=== PATIENT | female | born 1960 | race American Indian/Alaskan Native ===

== ENCOUNTER 2017-11-12 09:09 | Emergency (ER) | payer MEDICAID ==
[~2017-11-12] VITALS: Ht 157.5 cm; Wt 40.8 kg
[~2017-11-12 09:09] MED LIST: ALBIPROI INH; ALBU90OI INH; AZIT250 PO; BUPR150ER; CALCAVITD PO; CEPH500 PO; CODACE30 PO; CODGUAEL PO; CYCL10 PO; Duoneb 2.5-0.5 M3 ML INH; HYDACE5 PO; HYDACE7.5 PO; IBUP200; LEVFLO500 PO; MULVITMIND PO; PRED20 PO; Prednisone20 MG PO; Prednisone50 MG PO; RXHYDACE PO; STIOLTO RESPIMAT4 GM; Zithromax250 MG PO
[2017-11-12 10:00] LABS: BASOPHILS ABSOLUTE AUTO 0.04 K/mm3 (0.00-0.23); BASOPHILS PERCENT AUTO 1 % (0-2); EOSINOPHILS ABSOLUTE AUTO 0.38 K/mm3 (0.00-0.68); EOSINOPHILS PERCENT AUTO 6 % (0-6); Hematocrit 44.1 % (33.0-51.0); Hemoglobin 14.6 g/dL (11.5-16.0); IMMATURE GRAN ABSOLUTE AUTO 0.01 K/mm3 (0.00-0.10); IMMATURE GRAN PERCENT AUTO 0 % (0-1); LYMPHOCYTES ABSOLUTE AUTO 1.88 K/mm3 (0.84-5.20); LYMPHOCYTES PERCENT AUTO 28 % (21-46); MONOCYTES PERCENT AUTO 10 % (4-13); Mean Corpuscular HGB 31.3 pg (26.0-34.0); Mean Corpuscular HGB Conc 33.1 g/dL (31.5-36.5); Mean Corpuscular Volume 95 fL (80-100); Mean Platelet Volume 11.4 fL (9.1-12.4); NEUTROPHILS ABSOLUTE AUTO 3.75 K/mm3 (1.96-9.15); NEUTROPHILS PERCENT AUTO 56 % (41-73); Platelet Count 232 K/mm3 (150-400); RDW Coefficient Variation 12.2 % (11.7-14.2); RDW Standard Deviation 42.3 fL (35.1-46.3); Red Blood Cell Count 4.66 M/mm3 (3.80-5.20); White Blood Cell Count 6.76 K/mm3 (4.00-11.30)
[2017-11-12 10:14] LABS: Alanine Aminotransfer (ALT/SGP 36 U/L (12-78); Albumin, Blood 3.9 g/dL (3.4-5.0); Albumin/Globulin Ratio 1.1 (0.8-1.8); Alk Phos 54 U/L (50-136); Anion Gap 6 mmol/L (6-16); Aspartate Aminotrans (AST/SGOT 31 U/L (12-37); Bilirubin, Total 0.4 mg/dL (0.1-1.0); Blood Urea Nitrogen 14 mg/dL (8-24); Bun/Creatinine Ratio 16.8 (12.0-20.0); CO2, Blood 31 mmol/L (21-32); Calcium, Blood 8.8 mg/dL (8.5-10.1); Chloride, Blood 104 mmol/L (98-108); Creatinine, Blood 0.83 mg/dL (0.40-1.00); Globulin, Blood 3.6 g/dL (2.2-4.0); Glomerular Filtration Rate >60 (60-); Glucose, Blood 123 mg/dL (70-99); Sodium, Blood 141 mmol/L (136-145); Total Protein, Blood 7.5 g/dL (6.4-8.2); Troponin I <0.015 ng/mL (0.000-0.040)
[2017-11-12] MEDS ORDERED: Prednisone20 MG PO (11:16)
[2017-11-12] MEDS ORDERED: Zithromax250 MG PO (11:16)
[2017-11-12] MEDS ORDERED: STIOLTO RESPIMAT4 GM INH (11:16)
== END 2017-11-12 11:33 | disposition home or self-care (01) ==
LOC: ER 09:09
PROVIDERS: Emergency Medicine
DX: J44.1 Chronic obstructive pulmonary disease with (acute) exacerbation (principal); F17.200 Nicotine dependence, unspecified, uncomplicated
CPT/HCPCS: 36415; 71046; 80053; 84484; 85025; 93005; 93010; 94640; 96374; 99284-25; J2930

== ENCOUNTER 2018-09-01 00:04 | Inpatient (IN) | payer OTHER ==
[~2018-09-01] VITALS: Ht 157.5 cm; Wt 33.8 kg
[~2018-09-01 00:04] MED LIST changes: +STIOLTO RESPIMAT4 GM INH
[2018-09-01 01:35] LABS: Alanine Aminotransfer (ALT/SGP 32 U/L (12-78); Albumin, Blood 3.2 g/dL (3.4-5.0); Albumin/Globulin Ratio 0.8 (0.8-1.8); Alk Phos 64 U/L (50-136); Anion Gap 4 mmol/L (6-16); Aspartate Aminotrans (AST/SGOT 21 U/L (12-37); Bilirubin, Total 0.2 mg/dL (0.1-1.0); Blood Urea Nitrogen 18 mg/dL (8-24); Bun/Creatinine Ratio 24.6 (12.0-20.0); CO2, Blood 39 mmol/L (21-32); Calcium, Blood 8.8 mg/dL (8.5-10.1); Chloride, Blood 100 mmol/L (98-108); Creatinine, Blood 0.73 mg/dL (0.40-1.00); Globulin, Blood 3.8 g/dL (2.2-4.0); Glomerular Filtration Rate >60 (60-); Glucose, Blood 141 mg/dL (70-99); Potassium, Blood 4.2 mmol/L (3.5-5.5); Sodium, Blood 143 mmol/L (136-145); Troponin I <0.015 ng/mL (0.000-0.040)
[2018-09-01 01:37] LABS: BASOPHILS ABSOLUTE AUTO 0.03 K/mm3 (0.00-0.23); BASOPHILS PERCENT AUTO 0 % (0-2); EOSINOPHILS ABSOLUTE AUTO 0.17 K/mm3 (0.00-0.68); EOSINOPHILS PERCENT AUTO 2 % (0-6); Hematocrit 43.4 % (33.0-51.0); Hemoglobin 13.2 g/dL (11.5-16.0); IMMATURE GRAN ABSOLUTE AUTO 0.04 K/mm3 (0.00-0.10); IMMATURE GRAN PERCENT AUTO 0 % (0-1); LYMPHOCYTES PERCENT AUTO 16 % (21-46); MONOCYTES PERCENT AUTO 7 % (4-13); Mean Corpuscular HGB 30.2 pg (26.0-34.0); Mean Corpuscular HGB Conc 30.4 g/dL (31.5-36.5); Mean Corpuscular Volume 99 fL (80-100); Mean Platelet Volume 10.4 fL (9.1-12.4); NEUTROPHILS ABSOLUTE AUTO 8.46 K/mm3 (1.96-9.15); NEUTROPHILS PERCENT AUTO 75 % (41-73); Platelet Count 279 K/mm3 (150-400); RDW Standard Deviation 50.8 fL (35.1-46.3); Red Blood Cell Count 4.37 M/mm3 (3.80-5.20)
--- NOTE | 2018-09-01 05:57 | NUR ---
0345 58 Y/O SLENDER FEMALE ADMITTED TO ROOM 310 VIA STRETCHER WITH DAUGHTER AT SIDE (DAUGHTER TOOK ALL PERSONAL BELONGINGS HOME WITH HER). ADMISSION ASSESSMENT COMPLETED. PT ATE BOWL OF SOUP, BEEF SANDWICH AND YOGURT UPON PRESENTATION TO ROOM. 0550 PT HAS SOLUMEDROL 60MG IVP ORDERED AT 0700 (PT RECEIVED 125MG IVP AT 0300). THIS NURSE CALLED PHARMACY AND SPOKE WITH CELESTINO, PHARMICIST WHOM SAID IT WAS OK GIVE MED ORDERED.
--- NOTE | 2018-09-01 08:00 | NUR ---
PT. SLEEPING, VERY LETHARGIC OPENS EYES AND THEN CLOSES THEM WITHOUT ANSWERING. OXYGEN AT 3L/NC.
[2018-09-01 10:57] LABS: PCO2 Arterial 70.3 mmHg (35-45); PO2 Arterial 92.2 mmHg (80-100); pH Blood Arterial 7.37 (7.35-7.45)
--- NOTE | 2018-09-01 19:00 | NUR ---
PT. LYING QUIETLY AT THIS TIME. HAS A TENDEENCY TO PANIC WHEN SHE GETS SOB. SAT WITH PT. UNTIL SHE CALMED DOWN AND RT ARRIVED. NO NOTEABLE CHANGES THIS SHIFT.
--- NOTE | 2018-09-02 04:25 | NUR ---
58 Y/O FEMALE RESTED COMFORTABLY ALL EVENING WITH FAMILY AT SIDE TILL 2300. PTS DELINING TO WEAR C/PAP IN ROOM--WEARING O2 AT 2L/M PER NASAL CANNULA. PT HAPPY AND COOPERATIVE AND VOICED SHE FEELING SLIGHTLY BETTER. PT LUNGS SOUNDS ARE DIMINISHED THROUGHOUT WITH ZERO COUGH NOTED. PTS BED IN LOW POSITION, CALL LIGHT AT SIDE.
[2018-09-02 07:26] LABS: BASOPHILS ABSOLUTE AUTO 0.01 K/mm3 (0.00-0.23); BASOPHILS PERCENT AUTO 0 % (0-2); EOSINOPHILS PERCENT AUTO 0 % (0-6); Hemoglobin 13.5 g/dL (11.5-16.0); IMMATURE GRAN ABSOLUTE AUTO 0.03 K/mm3 (0.00-0.10); IMMATURE GRAN PERCENT AUTO 0 % (0-1); LYMPHOCYTES ABSOLUTE AUTO 0.69 K/mm3 (0.84-5.20); LYMPHOCYTES PERCENT AUTO 8 % (21-46); MONOCYTES ABSOLUTE AUTO 0.13 K/mm3 (0.16-1.47); MONOCYTES PERCENT AUTO 2 % (4-13); Mean Corpuscular HGB 30.9 pg (26.0-34.0); Mean Platelet Volume 11.3 fL (9.1-12.4); NEUTROPHILS ABSOLUTE AUTO 8.04 K/mm3 (1.96-9.15); NEUTROPHILS PERCENT AUTO 90 % (41-73); Platelet Count 280 K/mm3 (150-400); RDW Coefficient Variation 13.5 % (11.7-14.2); RDW Standard Deviation 51.8 fL (35.1-46.3); Red Blood Cell Count 4.37 M/mm3 (3.80-5.20)
[2018-09-02 08:00] LABS: Anion Gap 3 mmol/L (6-16); Blood Urea Nitrogen 22 mg/dL (8-24); CO2, Blood 35 mmol/L (21-32); Calcium, Blood 8.5 mg/dL (8.5-10.1); Chloride, Blood 101 mmol/L (98-108); Creatinine, Blood 0.63 mg/dL (0.40-1.00); Glomerular Filtration Rate >60 (60-); Glucose, Blood 133 mg/dL (70-99); Potassium, Blood 4.8 mmol/L (3.5-5.5); Sodium, Blood 139 mmol/L (136-145)
[2018-09-02 08:09] LABS: Mean Corpuscular Volume 103 fL (80-100)
--- NOTE | 2018-09-02 18:34 | NUR ---
ALERT, ORIENTED BUT FORGETFUL. AMBULATORY WITH STEADY GAIT IN ROOM. SOMETIMES GETS SOB WITH MOVEMENT. ON OXYGEN. WILL CONTINUE TO MONITOR.
--- NOTE | 2018-09-03 07:07 | NUR ---
a+o to self and place, call light in reach, walking rounds completed with returning day shift, saline locked, 2L via nc, did not enjoy being woken up.
--- NOTE | 2018-09-03 11:25 | NUR ---
Spiritual care visit conducted. Patient was lying on her side and resting when I entered the room. Patient immediately stated that she was tired and would not tolerate a long visit. As I asked patient a few questions, I observed that patient was not open with sharing information about her physical, spiritual or emotional status. I, therefore, made my visit short. I asked patient if I could say a prayer for her and she nodded affirmingly and so I provided prayer for the patient. Patient responded well to the prayer nd thanked me for praying for her. I will continue to remain available to patient and family.
--- NOTE | 2018-09-03 13:35 | NUR ---
LEFT MESSAGE ON VOICE MAIL THAT PATIENT GETTING HEADACHE YESTERDAY AND TODAY. GIVEN TYLENOL EARLIER AND HELPED. HEADACHE AGAIN. PATIENT NORMALLY TAKES 400 MG IBUPROFEN AT HOME. AWAITING ANY ORDERS.
--- NOTE | 2018-09-03 17:30 | NUR ---
LEFT MESSAGE ON VOICE MAIL PATIENT AND RELATIVES WONDERING ABOUT; PULMONOLOGY CONSULT, NEED FOR IV FLUIDS, CHANGE STEROIDS. AWAITING ANY ORDERS
--- NOTE | 2018-09-03 18:21 | NUR ---
PATIENT ALERT BUT FORGETFUL.CHANGED OXYGEN TO HUMIDIFIED. ADVISED RELATIVES AND PATIENT LOOKS LIKE PULMONOLGY CONSULT IS OUTPATIENT AND USUALLY WHEN PATIENTS ARE DRINKING APPROPRIATE AMOUNTS OF FLUIDS IV FLUIDS ARE NOT ORDERED. COOPERATIVE. AWARE NEEDS MEASURE URINE. WCTM
--- NOTE | 2018-09-04 07:07 | NUR ---
alert and orintated to self and location short term memory, thought events that occured previous day just occured, call light in reach, walking rounds completed, saline locked, 2L via NE
--- NOTE | 2018-09-04 19:06 | NUR ---
ALERT. ORIENTED. FORGETFUL. AMBULATORY W/STEADY GAIT IN ROOM. DOES GET SOB SOMETIMES W/EXERTION. IV PATENT. CONTINUOUS SAT ON. NO ACUTE CHANGES. REPORT TO NIGHT RN
[2018-09-05 05:16] LABS: BASOPHILS ABSOLUTE AUTO 0.02 K/mm3 (0.00-0.23); BASOPHILS PERCENT AUTO 0 % (0-2); EOSINOPHILS PERCENT AUTO 0 % (0-6); Hemoglobin 12.1 g/dL (11.5-16.0); IMMATURE GRAN ABSOLUTE AUTO 0.13 K/mm3 (0.00-0.10); IMMATURE GRAN PERCENT AUTO 2 % (0-1); LYMPHOCYTES PERCENT AUTO 6 % (21-46); MONOCYTES ABSOLUTE AUTO 0.35 K/mm3 (0.16-1.47); MONOCYTES PERCENT AUTO 4 % (4-13); Mean Corpuscular HGB 30.2 pg (26.0-34.0); Mean Corpuscular HGB Conc 29.5 g/dL (31.5-36.5); Mean Corpuscular Volume 102 fL (80-100); Mean Platelet Volume 11.6 fL (9.1-12.4); NEUTROPHILS ABSOLUTE AUTO 7.95 K/mm3 (1.96-9.15); NEUTROPHILS PERCENT AUTO 89 % (41-73); Platelet Count 251 K/mm3 (150-400); RDW Standard Deviation 52.9 fL (35.1-46.3); Red Blood Cell Count 4.01 M/mm3 (3.80-5.20); White Blood Cell Count 8.95 K/mm3 (4.00-11.30)
[2018-09-05 05:37] LABS: Anion Gap 1 mmol/L (6-16); Blood Urea Nitrogen 26 mg/dL (8-24); Bun/Creatinine Ratio 47.4 (12.0-20.0); CO2, Blood 39 mmol/L (21-32); Calcium, Blood 8.3 mg/dL (8.5-10.1); Chloride, Blood 102 mmol/L (98-108); Creatinine, Blood 0.55 mg/dL (0.40-1.00); Glomerular Filtration Rate >60 (60-); Glucose, Blood 126 mg/dL (70-99); Potassium, Blood 4.6 mmol/L (3.5-5.5); Sodium, Blood 142 mmol/L (136-145)
--- NOTE | 2018-09-05 07:18 | NUR ---
resting comfortably, still has headache that is reduced by medication, call light in reach, 2L via nc, saline locked, forgetful alert to self, family and location, walking rounds completed with day staff
--- NOTE | 2018-09-05 14:12 | NUR ---
Spiritual care visit conducted. Patient was resting when I entered patient's room but easily awoke to the sound of her name. I asked patient how she is feeling and patient stated, "I am tired, very tired." Patient continues to be quite guarded with me. Patient still allows me to pray for her but that is the extent of engagement she will allow at this time. I provided prayer and will continue to remain available.
--- NOTE | 2018-09-05 15:58 | NUR ---
PT IS ALERT AND ORIENTED AND COOPERATIVE WITH CARE. SHE HAS A PRODUCTIVE COUGH PRODUCING YELLOW, THICK SPUTUM. A SPUTUM SAMPLE WAS TAKEN AND CULTURED. DR. PARSON STARTED HER ON IV ANTIBIOTICS TODAY. SHE COMPLAINED OF CONSTIPATION THIS MORNING BUT REFUSED THE MORNING STOOL SOFTENERS. SHE IS INDEPENDENT TO THE RESTROOM. FAMILY WAS AT THE BEDSIDE FOR MOST OF THE DAY. WILL CONTINUE TO MONITOR.
--- NOTE | 2018-09-05 23:50 | NUR ---
09/05/18 2330 PT AWAKE AND JUST HAD RESP TX. TIRED BUT UNABLE TO SLEEP. STATES SHE JUST DOESN'T FEEL GOOD. XANAX GIVEN PER JUL. CONT. PULSE OX. ON AND SATS= 95% ON 3 LPM OF OXYGEN.
--- NOTE | 2018-09-06 08:00 | NUR ---
PT SLEEPING THIS MORNING AFTER A RESTLESS NIGHT. WILL LET HER SLEEP A LITTLE LONGER. WILL CONTINUE TO MONITOR.
--- NOTE | 2018-09-06 09:40 | NUR ---
PT AWAKE, ALERT AND ORIENTED X4, EATING A LATE BREAKFAST, AM MEDS TAKEN WITHOUT DIFFICULTY.
--- NOTE | 2018-09-06 19:06 | NUR ---
NO ACUTE CHANGES NOTED THIS SHIFT, WILL CONTINUE TO MONITOR AND REPORT TO ONCOMING RN
[2018-09-07] MEDS ORDERED: ALBU2.5V5 NEB (12:09)
[2018-09-07] MEDS ORDERED: Acetaminophen650 M1 PO (12:10)
[2018-09-07] MEDS ORDERED: ALBU3IS INH (12:10)
[2018-09-07] MEDS ORDERED: Augmentin 875-1 EACH PO (12:11)
[2018-09-07] MEDS ORDERED: DOCU100 PO (12:12)
[2018-09-07] MEDS ORDERED: PRED20 (12:14)
[2018-09-07] MEDS ORDERED: DULERA 100 MCG/13 GM INH (12:15)
[2018-09-07] MEDS ORDERED: PANT40 PO (12:15)
[2018-09-07] MEDS ORDERED: HEMORRHOIDAL OI57 GM PR (12:17)
[2018-09-07] MEDS ORDERED: AZIT500 PO (12:17)
[2018-09-07] MEDS ORDERED: Florastor250 MG PO (12:18)
--- NOTE | 2018-09-07 16:13 | NUR ---
DISCHARGE NOTE PT DISCHARGED TO HOME. PT LEFT ROOM VIA WHEELCHAIR WITH AUTO CLAIM REPRESENTATIVE ESCORT AT 1605 WITH 2L O2. PT EDUCATED ON NEW MEDICATIONS AND FOLLOW UP WITH PCP AND PULMONOLOGY. IV DC'D AND BELONGINGS RETURNED. ALL QUESTIONS ANSWERED
== END 2018-09-07 16:05 | disposition home or self-care (01) | DRG 189 ==
LOC: ER 00:04 → MEDS 02:40 → ENPENDDIS 09-07 09:07 → MEDS 09-07 16:05
PROVIDERS: Emergency Medicine; Internal Medicine; ADMIT Hospitalist
PROC: 5A09357 Assistance with Respiratory Ventilation, Less than 24 Consecutive Hours, Continuous Positive Airway Pressure (ICD-10-PCS; principal; 2018-09-01)
DX: J96.21 Acute and chronic respiratory failure with hypoxia (principal); G92 Toxic encephalopathy; J44.1 Chronic obstructive pulmonary disease with (acute) exacerbation; E87.3 Alkalosis; R63.6 Underweight; F43.21 Adjustment disorder with depressed mood; B96.3 Hemophilus influenzae [H. influenzae] as the cause of diseases classified elsewhere; Z87.891 Personal history of nicotine dependence; R73.9 Hyperglycemia, unspecified; J96.22 Acute and chronic respiratory failure with hypercapnia; K59.00 Constipation, unspecified; K64.9 Unspecified hemorrhoids
CPT/HCPCS: 36415; 36600; 71046; 80048; 80053; 82803; 83880; 84484; 85025; 87070; 87077; 87185; 87205; 93005; 93010; 94640; 94660; 94664; 94667; 94668; 94761; 94762; 96374; 98960; 99285-25; J0456; J0696; J1650; J2930; J7050

== ENCOUNTER → 2018-09-12 | Outpatient (CLI) | payer OTHER ==
[~2018-09-12] MED LIST changes: +ALBU2.5V5 NEB; +ALBU3IS INH; +AZIT500 PO; +Acetaminophen650 M1 PO; +Augmentin 875-1 EACH PO; +DOCU100 PO; +DULERA 100 MCG/13 GM INH; +Florastor250 MG PO; +HEMORRHOIDAL OI57 GM PR; +PANT40 PO; +PRED20
== END | disposition home or self-care (01) ==
LOC: LAB SHORT 18:09 → LAB 18:09
DX: L03.115 Cellulitis of right lower limb (principal)
CPT/HCPCS: 87070; 87205

== ENCOUNTER 2022-09-22 08:24 | Inpatient (IN) | payer OTHER ==
[~2022-09-22] VITALS: Ht 149.9 cm; Wt 33.1 kg
[2022-09-22] VITALS (30 sets, daily range): BP systolic 79–147; BP diastolic 48–128
[2022-09-22 08:47] LABS: Base Excess Venous 28.5 mmol/L; Bicarbonate Venous 48.2 mmol/L (24.0-30.0); PCO2 Venous 84.9 mmHg (38-42); pH Blood Venous 7.41 (7.34-7.37)
[2022-09-22 09:03] LABS: BASOPHILS ABSOLUTE AUTO 0.02 K/mm3 (0.00-0.23); BASOPHILS PERCENT AUTO 0 % (0-2); EOSINOPHILS ABSOLUTE AUTO 0.07 K/mm3 (0.00-0.68); EOSINOPHILS PERCENT AUTO 1 % (0-6); Hematocrit 42.4 % (33.0-51.0); Hemoglobin 12.1 g/dL (11.5-16.0); IMMATURE GRAN ABSOLUTE AUTO 0.02 K/mm3 (0.00-0.10); IMMATURE GRAN PERCENT AUTO 0 % (0-1); LYMPHOCYTES ABSOLUTE AUTO 1.99 K/mm3 (0.84-5.20); LYMPHOCYTES PERCENT AUTO 34 % (21-46); MONOCYTES ABSOLUTE AUTO 0.53 K/mm3 (0.16-1.47); MONOCYTES PERCENT AUTO 9 % (4-13); Mean Corpuscular HGB 31.2 pg (26.0-34.0); Mean Corpuscular HGB Conc 28.5 g/dL (31.5-36.5); Mean Corpuscular Volume 109 fL (80-100); Mean Platelet Volume 11.7 fL (9.1-12.4); NEUTROPHILS ABSOLUTE AUTO 3.28 K/mm3 (1.96-9.15); NEUTROPHILS PERCENT AUTO 56 % (41-73); Platelet Count 178 K/mm3 (150-400); RDW Coefficient Variation 13.2 % (11.7-14.2); RDW Standard Deviation 53.5 fL (35.1-46.3); Red Blood Cell Count 3.88 M/mm3 (3.80-5.20); White Blood Cell Count 5.91 K/mm3 (4.00-11.30)
[2022-09-22 09:19] LABS: Alanine Aminotransfer (ALT/SGP 29 U/L (12-78); Albumin, Blood 3.2 g/dL (3.4-5.0); Albumin/Globulin Ratio 0.8 (0.8-1.8); Alk Phos 50 U/L (50-136); Anion Gap Unable to Calculate mmol/L (6-16); Aspartate Aminotrans (AST/SGOT 27 U/L (12-37); Bilirubin, Total 0.3 mg/dL (0.1-1.0); Blood Urea Nitrogen 13 mg/dL (8-24); Bun/Creatinine Ratio 27.4 (12.0-20.0); Calcium, Blood 8.3 mg/dL (8.5-10.1); Chloride, Blood 93 mmol/L (98-108); Creatinine, Blood 0.48 mg/dL (0.40-1.00); Globulin, Blood 3.9 g/dL (2.2-4.0); Glomerular Filtration Rate 107 (60-); Glucose, Blood 117 mg/dL (70-99); Sodium, Blood 142 mmol/L (136-145); Total Protein, Blood 7.1 g/dL (6.4-8.2)
[2022-09-22 09:19] LABS: PCO2 Arterial > 104 mmHg (35-45); pH Blood Arterial 7.27 (7.35-7.45)
[2022-09-22 09:21] LABS: PO2 Arterial 25.6 mmHg (80-100)
[2022-09-22 09:21] LABS: CO2, Blood >45 mmol/L (21-32)
[2022-09-22 11:04] LABS: Influenza A, PCR NEGATIVE (NEGATIVE); Influenza B, PCR NEGATIVE (NEGATIVE); Resp Syncytial Virus, PCR NEGATIVE (NEGATIVE); SARS-Cov-2 (COVID-19) PCR, MMC NEGATIVE (NEGATIVE)
[2022-09-22 14:24] LABS: Source, Urine Foley catheter
[2022-09-22 14:36] LABS: Appearance, Urine Hazy (Clear); Bilirubin, Urine Neg (Neg); Blood, Urine Neg (Neg); Color, Urine Yellow (P-Yellow); Glucose Qualitative, Urine Neg (Neg); Ketones, Urine Neg (Neg); Leukocyte Esterase, Urine Neg (Neg); Nitrite, Urine Neg (Neg); Protein, Urine Neg (Neg); Urobilinogen, Urine NORM (Normal)
--- NOTE | 2022-09-22 14:39 | NUR ---
PT ARRIVED TO ROOM AT 1223. INITIALLY THE PATIENT SEEMED TO BE CALM AND COOPERATED WITH CARE. WITHIN MINUTES OF THE PATIENT GETTING SETTLED IN BED SHE BEGAN TO BECOME RESTLESS AND MORE AGITATED. THE PATIENT'S PRECEDEX WAS AT 0.7 WHEN SHE ARRIVED. THE PATIENT THEN STARTED TO TAKE HER BIPAP OFF, GOT ON THE EDGE OF THE BED AND STARTED ASKING FOR HER MOM AND BROTHER. THE PATIENT BEGAN TO TAKE HER BP CUFF OFF AND BROKE THE SP02 MONITORING OFF HER TOE WELL. THE PATIENT'S PRECEDEX WAS TURNED UP TO 1.4 BY DYLON ROSE. THE PATIENT WAS STILL RESTLESS AND AGITATED AND CONTINUED TO TAKE HER BIPAP OFF. THE PT WAS NOT REDIRECTABLE AND WOULD TELL STAFF MEMBERS IN THE ROOM TO "BACK OFF". DR. TAVERAS THEN ORDERED 40 MG OF KETAMINE. DYLON ROSE PUSHED THE KETAMINE AND THEN THE PT LEANED BACK IN BED AND BECAME SPASTIC AND WAS UNABLE TO FOCUS. THIS CONTINUED AND DR. TAVERAS ORDERED ATIVAN 2 MG. DYLON ROSE PUSHED THE ATIVAN AND THE PT THEN APPEARED MORE RELAXED AND THE SPASTIC MOVEMENTS STOPPED. THE PT HAS NOW BEEN ABLE TO TOLERATE THE BIPAP.
[2022-09-22 14:46] LABS: U Amphetamine Screen DETECTED; U Barbituate Screen Not Detected; U Benzodiazapine Screen Not Detected; U Buprenorphine Screen Not Detected; U Cannabinoids Screen Not Detected; U Cocaine Screen Not Detected; U Methadone Screen Not Detected; U Methamphetamine Screen DETECTED; U Opiates Screen Not Detected; U Oxycodone Screen Not Detected; U Phencyclidine Screen Not Detected; U Propoxyphene Screen Not Detected
[2022-09-22 14:49] LABS: Bacteria Few /hpf; Red Blood Cells, Urine 0-2 /hpf (0-2); Squamous Epithelial Cells Few /hpf (Few); White Blood Cells, Urine 0-2 /hpf (0-5)
[2022-09-22 14:50] LABS: Amorphous Mod (0-Heavy)
--- NOTE | 2022-09-22 16:45 | NUR ---
CELESTINO HAS BEEN QUIETLY RESTING SINCE THE DOSE OF ATIVAN. HER PRECEDEX REMAINS AT 1.4MCG/KG AND HER BIPAP HAS BEEN TITRATED ACCORDINGLY. CURRENTLY AT 12/5 AND 40%. HER SATS ARE 97% AND SHE IS QUIET. VBG DONE AND AWAITING RESULTS.
[2022-09-22 16:47] LABS: Bicarbonate Venous 50.6 mmol/L (24.0-30.0); PCO2 Venous 82.7 mmHg (38-42); pH Blood Venous 7.43 (7.34-7.37)
[2022-09-22 16:48] LABS: Base Excess Venous 30.3 mmol/L
--- NOTE | 2022-09-22 17:00 | NUR ---
BIPAP WAS REMOVED BY THIS STUDENT NURSE AND RESPIRATORY THERAPY. 02 SATS 97% ON 3 L N/C. DR. TAVERAS NOTED THAT THE PT SHOULD WEAR THE BIPAP AT NIGHT. PT TOLERATING N/C WELL. PT CURRENTLY RESTING IN BED.
--- NOTE | 2022-09-22 17:13 | NUR ---
SPOKE WITH DAUGHTER CAITLYN, UPDATE GIVEN. SHE IS THE POA FOR PATIENT. SHE STATES THAT SHE UNDERSTANDS THAT THIS IS THE END STAGE OF THE DISEASE. SHE IS GLAD THAT HER MOTHER IS CURRENTLY DOING BETTER. WITH THE CHANGE IN THE VBG, SHE IS CURRENTLY ON NASAL CANNULA @ 2L. SHE CONTINUES TO REST QUIETLY.
--- NOTE | 2022-09-22 18:01 | NUR ---
SHIFT SUMMARY CELESTINO'S RESTLESSNESS AND AGITATION HAS IMPROVED THROUGHOUT THE SHIFT SINCE ATIVAN WAS GIVEN WHEN THE PT ARRIVED. THE PT ARRIVED ON BIPAP FROM THE ER AND SHE IS NOW ON 2 L N/C WHICH SHE IS TOLERATING WELL. 02 SATS @ 94%. THE PT IS CURRENTLY RESTING IN BED WITH HER AT HER BEDSIDE. DYLON ROSE SPOKE TO THE PT'S DAUGHTER AND UPDATED HER. PRECEDEX CURRENTLY AT 1.4. WILL CONTINUE TO MONITOR UNTIL CARE IS TRANSITIONED TO NOC SHIFT.
--- NOTE | 2022-09-22 19:00 | NUR ---
ASSUMED CARE OF PT AT 1900 PT RESTING IN BED WITH SPOUSE AT HER SIDE. PT IS CONFUSED WITH INTERMITENT AWAKENING SITTING UP IN BED THEN IMMEDIATELY LAYS BACK IN BED AND IS HARD TO AROUSE. RESPONDS TO TOUCH AND SOUND WITH MOANING. BECOMES COMBATIVE WITH REPOSITIONING. PRECEDEX AT 1.4 NS AT 20 MLS/HR. WOOTEN CATH DRAINING TO GRAVITY WITH STRAW YELLOW URINE PRESENT. NORMAL SINUS RYTHM WITH HR 70'S. 2 LPM NASAL CANULA WHEN THIS RN RECEIVED REPORT. BIPAP INITIATED AT 1999 DUE TO CONTINUED CONFUSION AND OXYGENATION NEEDS. PLEASE SEE FULL ASSESSMENT FOR FURTHER INFORMATION.
--- NOTE | 2022-09-22 19:28 | NUR ---
Pt seen in ER and ICU. Severe respitory distress and failure. Physician spoke with daughter who is decision maker and helps with her care. Pt is dnr.POLST form completed. Pt on bipap admitted to ICU for supportive care. KPS score is 30% pt graduated from hospice. Pt frail and precarious. Will review a return to comfort care and hospice care for pt. Daughter has severe stress today with life burdens will speak with her tomorrow. Intesivist on case will review with physcians before speaking with family aout plan.
[2022-09-23] VITALS (38 sets, daily range): BP systolic 85–122; BP diastolic 42–91
[2022-09-23 04:24] LABS: BASOPHILS ABSOLUTE AUTO 0.02 K/mm3 (0.00-0.23); BASOPHILS PERCENT AUTO 0 % (0-2); EOSINOPHILS ABSOLUTE AUTO 0.05 K/mm3 (0.00-0.68); EOSINOPHILS PERCENT AUTO 1 % (0-6); Hematocrit 39.3 % (33.0-51.0); Hemoglobin 11.9 g/dL (11.5-16.0); IMMATURE GRAN ABSOLUTE AUTO 0.01 K/mm3 (0.00-0.10); IMMATURE GRAN PERCENT AUTO 0 % (0-1); LYMPHOCYTES ABSOLUTE AUTO 1.79 K/mm3 (0.84-5.20); LYMPHOCYTES PERCENT AUTO 32 % (21-46); MONOCYTES ABSOLUTE AUTO 0.48 K/mm3 (0.16-1.47); MONOCYTES PERCENT AUTO 9 % (4-13); Mean Corpuscular HGB 30.8 pg (26.0-34.0); Mean Corpuscular HGB Conc 30.3 g/dL (31.5-36.5); Mean Platelet Volume 11.8 fL (9.1-12.4); NEUTROPHILS ABSOLUTE AUTO 3.22 K/mm3 (1.96-9.15); NEUTROPHILS PERCENT AUTO 58 % (41-73); Platelet Count 143 K/mm3 (150-400); RDW Coefficient Variation 13.4 % (11.7-14.2); RDW Standard Deviation 50.4 fL (35.1-46.3); Red Blood Cell Count 3.86 M/mm3 (3.80-5.20); White Blood Cell Count 5.57 K/mm3 (4.00-11.30)
[2022-09-23 04:27] LABS: Mean Corpuscular Volume 102 fL (80-100)
[2022-09-23 04:37] LABS: Bun/Creatinine Ratio 25.9 (12.0-20.0); Calcium, Blood 8.6 mg/dL (8.5-10.1); Creatinine, Blood 0.58 mg/dL (0.40-1.00); Potassium, Blood 4.5 mmol/L (3.5-5.5)
--- NOTE | 2022-09-23 05:45 | NUR ---
END OF SHIFT SUMMARY A/O X1. PT COULD NOT VERIFY WHERE SHE WAS, HER , AND WHY SHE WAS HERE. RESP- PT WORE BIPAP ALL NIGHT. BRIEF BREAK GIVEN TO MOISTEN MOUTH. WITHIN 15 MINUTES PT DESATS TO LOW 80'S ON 3 LPM NC. LUNG SOUNDS DIMINISHED. CARDIAC- NSR WITH HR 70'S. SBP 100'S. NO SIGNIFICANT CHANGES TO REPORT. GI,- WOOTEN DRAINING TO GRAVITY. NO BM THIS SHIFT. PRECEDEX @ 1.4 ALL OF THIS SHIFT. TKO @ 20 MLS/HR. WILL CONTINUE TO MONITOR PT UNTIL REPORT GIVEN TO AM RN.
--- NOTE | 2022-09-23 08:29 | NUR ---
ASSUMED CARE OF CELESTINO AT 0700, SHE WAS SLEEPING AT THE TIME. SHE AWOKE AND WAS PLAYING WITH HER PHONE. MASK REMOVED, NASAL CANNULA APPLIED. ORAL CARE, CATH CARE AND SIPS OF WATER GIVEN. PT SPOKE WITH SOME FAMILY MEMBERS. REMAINED OFF THE BIPAP FOR OVER 30 MINUTES AND BEGAN TO DESATURATE DURING HER BREATHING TX SHE WAS BECOMING MORE ANXIOUS AND TAKING OFF THE MASK. HER BIPAP WAS RE- APPLIED WITH A BIT OF A LANG. SHE ADMITTED THAT SHE WAS SCARED IN A MOMENT OF CLARITY. SHE CALMED FOR A BRIEF AMOUNT OF TIME. DR. NEIL CAME IN TO SEE HER, SHE DENIED ANY CHEST PAIN OR SHORTNESS OF BREATH AT THAT TIME. CONTINUES TO PLAY WITH HER PHONE ALTHOUGH SHE REMAINS UNABLE TO PERFORM ANY REAL FUNCTION WITH IT AT THIS TIME.
--- NOTE | 2022-09-23 11:14 | NUR ---
CELESTINO HAS CONTINUED TO BE INTERMITTENTLY CONFUSED AND UNCOOPERATIVE TO MORE APPROPRIATE AND COOPERATIVE. SHE IS CURRENTLY DRINKING SOME SPRITE AND HAVING A RUBEN CRACKER AND PUDDING. AT BEDSIDE. SHE CONTINUES TO NOT RECALL HAVING A CATHETER, CONTINUED TO BE REMINDED THAT WE ARE WATCHING HER OUTPUT. HER BREATHING IS EASY AND UNLABORED.
--- NOTE | 2022-09-23 12:19 | NUR ---
AND SPEAKING WITH CELESTINO, DISCUSSING HER PLAN OF CARE. THE PLAN OF CARE WAS DECIDED AND THE DR'S RELAYED TO THIS RN. WOOTEN CATHETER REMOVED, PRECEDEX ON STANDBY, PT UP TO THE CHAIR. AT HER SIDE. SHE IS MORE PLEASANT AND COOPERATIVE AT THIS TIME. SPOKE WITH HER ABOUT PUTTING THE BIPAP ON INTERMITTENTLY T/O THE DAY TO TRY AND GET MORE COMFORTABLE WITH IT.
--- NOTE | 2022-09-23 13:12 | NUR ---
PLANNED WITH CELESTINO TO BEGIN TRIALING THE BIPAP AGAIN WITHOUT THE MEDICATION DR. TAVERAS WOULD LIKE HER TO USE IT AT HOME. WE DISCUSSED WEARING IT FROM 1300- 1330. WHEN I APPROACHED HER NEAR 1300 SHE SAID SHE NEEDED TO USE THE BATHROOM AGAIN, SHE USED THE BR AND IS NOW WEARING HER BIPAP. I ENCOURAGED HER BY TELLING HER THAT A TIMER IS SET FOR 30 MINUTES AND SHOWED HER THE TIMER. HER WAS ENCOURAGING OF THE WEARING OF THE BIPAP.
--- NOTE | 2022-09-23 13:44 | NUR ---
CELESTINO WORE HER MASK FOR 30 MINUTES, SHE WAS GETTING INCREDIBLY ANTSY AT THE END. SHE THEN SPOKE WITH ABOUT GETTING UP AND WALKING AROUND. WALKER PRESENTED TO HER AND SHE ASKED THAT I GO GET HER SOME FOOD. SHE IS TAKING IN SOME JELLO, PUDDING, FRUIT AND CRACKERS.
--- NOTE | 2022-09-23 14:56 | NUR ---
Met with Oliva in the ICU today. She is awake, sitting in the bedside chair. She reports that she doesn't remember anything that happened yesterday. She becomes winded easily with conversation. She reports that she was on hospice last year that was set up when she was discharged from the hospital in [place]. She is unsure of which hospice agency she had. She reports that she did not like hospice. "They just wanted me to take medicines and I don't take medicines." She reports she has had several family members who have also had less than favorable hospice experiences in the past. She did not elaborate any more than that, however she seemed to not be interested in additional information about hospice at this time. She had to get up and ambulate to the toilet during our conversation. She becomes SOB with exertion. After returning to her bedside chair she appeared more fatigued and not interested in engaging in conversation. She did ask about when dinner time was. She was planning to walk around in her room later this shift. She also stated that she will be attempting to wear the bipap mask for an hour. She reports that her nose is sore from wearing the mask earlier. Visit ended to facilitate pt's work of breathing to improve. Pt's POLST form on chart, not yet signed by MD. Nursing aware and will request that MD sign during next rounding. Will continue with gentle advanced care planning prn. Pt would benefit from symptom management if she would be agreeable to it.
--- NOTE | 2022-09-23 15:16 | NUR ---
UP AND MOVING ABOUT WITH THE WALKER, MORE STEADY ON HER FEET. DEFINITELY MORE WINDED. BACK ON BIPAP WITH ENCOURAGEMENT TO WEAR FOR AN HOUR. GOAL BEING TO WEAR ALL NIGHT. SHE IS BEING FITTED WITH NOSE PROTECTOR BY RT FCO.
--- NOTE | 2022-09-23 16:22 | NUR ---
CELESTINO WAS ASKING FOR HER MASK OFF JUST AFTER 1600. SHE TOLERATED IT FOR JUST ABOUT AN HOUR. SHE WAS UP TO THE COMMODE, THEN SHE WAS SCRATCHING HER RIGHT ARM AND PULLED OUT HER IV WHILE SITTING ON THE COMMODE. SHE ASSISTED IN THE CLEAN UP OF HER THIGH AND LEG FROM THE BLOOD SPILLING. SHE IS PACKED UP AND IS INFORMED THAT SHE WILL BE MOVING TO THE MEDICAL FLOOR. SHE IS MENTIONING THAT SHE IS HOPING SHE IS DONE WITH THE MASK. SHE IS REMINDED THAT IT IS FOR HER BENEFIT. WILL CONTINUE TO ENCOURAGE LONGER PERIODS OF TIME ON THE MASK UNTIL NIGHTTIME.
--- NOTE | 2022-09-23 16:37 | NUR ---
REPORT CALLED TO DYLON WATSON ON MEDICAL. WILL KEEP CELESTINO FOR DINNER THEN TRANSFER SHE IS STATING SHE IS "STARVING".
--- NOTE | 2022-09-23 17:55 | NUR ---
Pt arrived to 309 via wheelchair from icu, able to tx to the bed with assist, oriented to room layout and call system, call light in reach. states she is doing ok, getting better. no further needs at this time.
--- NOTE | 2022-09-23 18:01 | NUR ---
CELESTINO SAID SHE WAS DONE EATING, WE PACKED HER UP IN THE WHEELCHAIR WITH ALL HER BELONGINGS AND HER BIPAP AND TOOK HER TO MEDICAL FLOOR. RECEIVED BY MARTIN NAIR. PT TRANSFERRED SELF TO BED FROM WHEELCHAIR.
--- NOTE | 2022-09-23 18:36 | NUR ---
pt wanted her bipap on after she finished eating, this was placed on her, tolerating well, no further changes this shift. call light in reach.
[2022-09-24 03:15] VITALS: BP 102/65
--- NOTE | 2022-09-24 04:49 | NUR ---
VIDEO GAME DESIGNER SUMMARY: A&Ox3-4. SOMEWHAT COOPERATIVE WITH CARE BUT IS FORGETFUL VS MANIPULATIVE; CALLS STAFF INTO ROOM AND THEN DENIES HAVING CALLED. DOES NOT LIKE TO KEEP BiPAP MASK ON. HAD AN EPISODE OF OXYGEN DROPPED TO MID-80S WITH BiPAP AND 3L/min BLEED-IN AND STILL MAINTAINED IN THE MID-80S; RESOLVED WITH BREATHING Tx. SLEPT MAJORITY OF NIGHT WITH FEW CONCERNS. VSS. REFUSES SCDs. LABS DRAWN THIS AM. REPORT TO ONCMEHNAZ CERVANTES.
[2022-09-24 05:22] LABS: BASOPHILS ABSOLUTE AUTO 0.02 K/mm3 (0.00-0.23); BASOPHILS PERCENT AUTO 0 % (0-2); EOSINOPHILS ABSOLUTE AUTO 0.08 K/mm3 (0.00-0.68); EOSINOPHILS PERCENT AUTO 1 % (0-6); Hematocrit 36.9 % (33.0-51.0); Hemoglobin 11.4 g/dL (11.5-16.0); IMMATURE GRAN ABSOLUTE AUTO 0.01 K/mm3 (0.00-0.10); IMMATURE GRAN PERCENT AUTO 0 % (0-1); LYMPHOCYTES ABSOLUTE AUTO 2.13 K/mm3 (0.84-5.20); LYMPHOCYTES PERCENT AUTO 37 % (21-46); MONOCYTES ABSOLUTE AUTO 0.59 K/mm3 (0.16-1.47); MONOCYTES PERCENT AUTO 10 % (4-13); Mean Corpuscular HGB 31.3 pg (26.0-34.0); Mean Corpuscular HGB Conc 30.9 g/dL (31.5-36.5); Mean Corpuscular Volume 101 fL (80-100); Mean Platelet Volume 11.1 fL (9.1-12.4); NEUTROPHILS ABSOLUTE AUTO 2.88 K/mm3 (1.96-9.15); NEUTROPHILS PERCENT AUTO 50 % (41-73); Platelet Count 176 K/mm3 (150-400); RDW Coefficient Variation 13.9 % (11.7-14.2); RDW Standard Deviation 51.2 fL (35.1-46.3); Red Blood Cell Count 3.64 M/mm3 (3.80-5.20); White Blood Cell Count 5.71 K/mm3 (4.00-11.30)
[2022-09-24 05:43] LABS: Bun/Creatinine Ratio 33.7 (12.0-20.0); Calcium, Blood 8.1 mg/dL (8.5-10.1); Creatinine, Blood 0.5 mg/dL (0.40-1.00); Potassium, Blood 3.7 mmol/L (3.5-5.5)
[2022-09-24 07:22] VITALS: BP 99/52
--- NOTE | 2022-09-24 08:00 | NUR ---
pt laying in bed awake a/ox3, on n/c, sats are in the low 80's and refusing to use bipap, had charge nurse and RT in to speak with her, she finally put it on for a short time, was going in circles with her reasoning, seemed a bit confused, about her settings, lungs are very dim and tight t/o, course in bases, resp even and unlabored, no cough noted, but she reports an occ productive cough of white sputum, hrr, no edema noted, ppp+1, cap refill <3 sec, vs stable, afebrile, piv site is clear and patent, btx4, abd flat soft nontender, voids without diff, skin c/w/d with some bruising, maew, tiesha, call light in reach.
[2022-09-24 14:53] VITALS: BP 96/52
--- NOTE | 2022-09-24 17:07 | NUR ---
Team meeting pt kps score is 30 to 40 % will review with daughter and plan for hospice care. Pt is much more frail. Reivew of history and poor ability to make decisions. Will set her up for hospice.
--- NOTE | 2022-09-24 18:13 | NUR ---
Pt did better this afternoon with bipap than this am, slept for a while with it in place, visitor in room this evening. no further changes this shift. call light in reach.
[2022-09-24 19:32] VITALS: BP 103/61
[2022-09-25 03:26] VITALS: BP 108/60
[2022-09-25 05:40] LABS: Albumin, Blood 2.8 g/dL (3.4-5.0); Anion Gap 1 mmol/L (6-16); Blood Urea Nitrogen 12 mg/dL (8-24); Bun/Creatinine Ratio 27.3 (12.0-20.0); CO2, Blood 41 mmol/L (21-32); Calcium, Blood 8.6 mg/dL (8.5-10.1); Chloride, Blood 100 mmol/L (98-108); Creatinine, Blood 0.44 mg/dL (0.40-1.00); Glomerular Filtration Rate 109 (60-); Glucose, Blood 86 mg/dL (70-99); Phosphorus, Blood 2.8 mg/dL (2.5-4.9); Potassium, Blood 3.9 mmol/L (3.5-5.5); Sodium, Blood 142 mmol/L (136-145)
--- NOTE | 2022-09-25 07:27 | NUR ---
PATIENT ON 3 L/MIN NC, OXIMETRY SHOWS 85-86%, IN NAD. PER ORDERS, OXYGEN NOT INCREASED, BIPAP OFFERED, WHICH PT VEHEMENTLY REFUSED.
[2022-09-25 07:32] VITALS: BP 110/65
[2022-09-25 07:52] LABS: PCO2 Arterial 68.7 mmHg (35-45); PO2 Arterial 52.8 mmHg (80-100)
[2022-09-25 15:21] VITALS: BP 112/75
--- NOTE | 2022-09-25 16:34 | NUR ---
SHIFT SUMMARY: NO ACUTE EVENTS. DECLINED TO WEAR BIPAP ALL SHIFT. O2 @ 4 L/MIN NC WITH SATS MAINTAINING 88-92%, STILL DESATS TO LOW 80'S WITH EXERTION. WEAK FISHER TRAMMEL NET COUGH. LUNG SOUNDS QUITE DIM THOUGHOUT, NO WHEEZES NOTED. WAS STARTED ON STERIODS, SOLUMEDROL X 1 GIVEN. GETTING UP TO BR WITH 1 PERSON ASSIST, HAD BM TODAY. TOLERATING REGULAR DIET. GAVE TELEPHONE UPDATE TO DAUGHTER CAITLYN AND GAVE HER NUMBER TO DR. KEARNS FOR UPDATE.
[2022-09-25 20:41] VITALS: BP 105/63
[2022-09-26 02:10] VITALS: BP 109/59
[2022-09-26 06:36] LABS: PCO2 Arterial 69.9 mmHg (35-45); PO2 Arterial 70.5 mmHg (80-100); pH Blood Arterial 7.38 (7.35-7.45)
[2022-09-26 07:27] VITALS: BP 119/64
[2022-09-26 15:20] VITALS: BP 93/60
--- NOTE | 2022-09-26 15:20 | NUR ---
SHIFT SUMMARY: STILL REFUSING TO WEAR BIPAP. ON O2 @ 4-5 L/MIN NC, HUMIDIFIED, WITH SATS 86-91%. APPEARS FATIGUED, IS NAPPING ON AND OFF. APPETITE OK, GOOD PO FLUID INTAKE. GETTING UP TO BR WITH SBA. NON PARTICIPATORY WITH THERAPY TODAY.
[2022-09-26 19:43] VITALS: BP 100/56
[2022-09-27 04:40] VITALS: BP 109/59
[2022-09-27 07:09] LABS: Albumin, Blood 2.8 g/dL (3.4-5.0); Anion Gap 1 mmol/L (6-16); Blood Urea Nitrogen 15 mg/dL (8-24); Bun/Creatinine Ratio 30.2 (12.0-20.0); CO2, Blood 39 mmol/L (21-32); Calcium, Blood 8.4 mg/dL (8.5-10.1); Chloride, Blood 102 mmol/L (98-108); Glomerular Filtration Rate 106 (60-); Glucose, Blood 77 mg/dL (70-99); Phosphorus, Blood 3.3 mg/dL (2.5-4.9); Potassium, Blood 3.9 mmol/L (3.5-5.5); Sodium, Blood 142 mmol/L (136-145)
[2022-09-27 07:33] VITALS: BP 119/65
[2022-09-27] MEDS ORDERED: CALCIUM 600-VI1 EAC6 PO (12:36)
[2022-09-27] MEDS ORDERED: TIOT18 INH (12:37)
[2022-09-27] MEDS ORDERED: Prednisone10 MG PO (12:39)
--- NOTE | 2022-09-27 13:57 | NUR ---
Pt being prepared for d/c. POLST completed by pt with [facility] signed by provider today. Copy sent to medical records for scanning into EMR and original with copy to be given to pt by RN reviewing d/c instructions with pt.
--- NOTE | 2022-09-27 14:30 | NUR ---
DISCHARGE INSTRUCTIONS COMPLETED AND DISCUSSED WITH PT AND WITH BOTH EXPRESSING UNDERSTANDING. SCRIPTS FAXED TO [facility] CH[facility]ST[facility]. SON AT BEDSIDE YESTERDAY WHEN TRILOGY INSTRUCTIONS COMPLETED BY ANA LUISA. TRILOGY AND EQUIPMENT WITH PT ON DISCHARGE. TO [facility] VIA W/C.
== END 2022-09-27 14:31 | disposition home health service (06) | DRG 193 ==
LOC: ER 08:24 → ICUW 10:31 → ER 12:10 → ICUW 12:23 → ER 12:25 → ICUW 09-23 15:44 → MEDS 09-23 17:47 → ENPENDDIS 09-27 10:33 → MEDS 09-27 14:31
PROVIDERS: Internal Medicine; Internal Medicine Critical Care Medicine; Physician Assistant; ADMIT Internal Medicine
PROC: 4A033R1 Measurement of Arterial Saturation, Peripheral, Percutaneous Approach (ICD-10-PCS; 2022-09-22)
PROC: 5A09457 Assistance with Respiratory Ventilation, 24-96 Consecutive Hours, Continuous Positive Airway Pressure (ICD-10-PCS; principal; 2022-09-27)
DX: J18.9 Pneumonia, unspecified organism (principal); G92.8 Other toxic encephalopathy; J96.22 Acute and chronic respiratory failure with hypercapnia; I50.31 Acute diastolic (congestive) heart failure; J96.21 Acute and chronic respiratory failure with hypoxia; E44.0 Moderate protein-calorie malnutrition; Z68.1 Body mass index [BMI] 19.9 or less, adult; R64 Cachexia; I11.0 Hypertensive heart disease with heart failure; Z51.5 Encounter for palliative care; Z66 Do not resuscitate; I95.89 Other hypotension; M81.0 Age-related osteoporosis without current pathological fracture; I27.20 Pulmonary hypertension, unspecified; F15.90 Other stimulant use, unspecified, uncomplicated; J43.9 Emphysema, unspecified; Z20.822 Contact with and (suspected) exposure to COVID-19; Z98.51 Tubal ligation status; Z90.49 Acquired absence of other specified parts of digestive tract; Z87.891 Personal history of nicotine dependence; Z99.81 Dependence on supplemental oxygen; Z79.899 Other long term (current) drug therapy; Z79.51 Long term (current) use of inhaled steroids; Z79.2 Long term (current) use of antibiotics
CPT/HCPCS: 0241U; 36415; 36600; 51702; 71045; 80048; 80053; 80069; 81001; 82803; 83605; 83880; 84145; 84484; 85025; 85379; 93005; 93010; 93306; 94640; 94645; 94660; 94664; 94760; 94762; 96365; 96366; 96368; 97110; 97162; 97166; 97530; 97535; 99285-25; A9270; J0456; J0696; J1650; J1940; J2060; J2930; J7030; J7050; J7512

== ENCOUNTER 2023-04-12 01:22 | Inpatient (IN) | payer OTHER ==
[~2023-04-12] VITALS: Ht 165.1 cm; Wt 40.2 kg
[2023-04-12] VITALS (20 sets, daily range): BP systolic 85–120; BP diastolic 45–72
[~2023-04-12 01:22] MED LIST changes: +CALCIUM 600-VI1 EAC6 PO; +Prednisone10 MG PO; +TIOT18 INH
[2023-04-12] MEDS ORDERED: LORA1 (01:48)
[2023-04-12] MEDS ORDERED: TEMA7.5 PO (01:49)
[2023-04-12 02:12] LABS: Base Excess Venous 21.2 mmol/L; PCO2 Venous 99.3 mmHg (38-42); pH Blood Venous 7.29 (7.34-7.37)
[2023-04-12 02:13] LABS: Source, Urine Clean Catch
[2023-04-12 02:16] LABS: BASOPHILS ABSOLUTE AUTO 0.02 K/mm3 (0.00-0.23); BASOPHILS PERCENT AUTO 0 % (0-2); EOSINOPHILS ABSOLUTE AUTO 0.25 K/mm3 (0.00-0.68); EOSINOPHILS PERCENT AUTO 4 % (0-6); Hematocrit 37.4 % (33.0-51.0); Hemoglobin 11.5 g/dL (11.5-16.0); IMMATURE GRAN ABSOLUTE AUTO 0.01 K/mm3 (0.00-0.10); IMMATURE GRAN PERCENT AUTO 0 % (0-1); LYMPHOCYTES ABSOLUTE AUTO 1.66 K/mm3 (0.84-5.20); LYMPHOCYTES PERCENT AUTO 29 % (21-46); MONOCYTES ABSOLUTE AUTO 0.52 K/mm3 (0.16-1.47); MONOCYTES PERCENT AUTO 9 % (4-13); Mean Corpuscular HGB 31.7 pg (26.0-34.0); Mean Corpuscular HGB Conc 30.7 g/dL (31.5-36.5); Mean Corpuscular Volume 103 fL (80-100); Mean Platelet Volume 11.8 fL (9.1-12.4); NEUTROPHILS ABSOLUTE AUTO 3.34 K/mm3 (1.96-9.15); NEUTROPHILS PERCENT AUTO 58 % (41-73); Platelet Count 157 K/mm3 (150-400); RDW Coefficient Variation 12.3 % (11.7-14.2); RDW Standard Deviation 46.5 fL (35.1-46.3); Red Blood Cell Count 3.63 M/mm3 (3.80-5.20)
[2023-04-12 02:25] LABS: Ethanol (Alcohol), Blood, Med <3 mg/dL; Magnesium, Blood 2.2 mg/dL (1.6-2.4)
[2023-04-12 02:27] LABS: Bilirubin, Urine Neg (Neg); Blood, Urine Neg (Neg); Glucose Qualitative, Urine Neg (Neg); Ketones, Urine Neg (Neg); Leukocyte Esterase, Urine Neg (Neg); Nitrite, Urine Neg (Neg); Protein, Urine 2+ (Neg); Specific Gravity, Urine 1.025 (1.003-1.022); Urobilinogen, Urine NORM (Normal)
[2023-04-12 02:27] LABS: Alanine Aminotransfer (ALT/SGP 26 U/L (12-78); Albumin, Blood 3.3 g/dL (3.4-5.0); Alk Phos 62 U/L (50-136); Aspartate Aminotrans (AST/SGOT 23 U/L (12-37); Bilirubin, Total 0.2 mg/dL (0.1-1.0); Blood Urea Nitrogen 11 mg/dL (8-24); Bun/Creatinine Ratio 19.4 (12.0-20.0); Calcium, Blood 8.5 mg/dL (8.5-10.1); Chloride, Blood 96 mmol/L (98-108); Creatinine, Blood 0.57 mg/dL (0.40-1.00); Globulin, Blood 3.4 g/dL (2.2-4.0); Glomerular Filtration Rate 102 (60-); Glucose, Blood 148 mg/dL (70-99); Potassium, Blood 3.9 mmol/L (3.5-5.5); Sodium, Blood 141 mmol/L (136-145); Total Protein, Blood 6.7 g/dL (6.4-8.2)
[2023-04-12 02:29] LABS: Anion Gap Unable to Calculate mmol/L (6-16); CO2, Blood >45 mmol/L (21-32)
[2023-04-12 02:33] LABS: Appearance, Urine Hazy (Clear); Color, Urine Yellow (P-Yellow)
[2023-04-12 02:34] LABS: Bacteria Few /hpf; Hyaline Casts 0-2 /lpf (0-2); Red Blood Cells, Urine 0-2 /hpf (0-2); Squamous Epithelial Cells Few /hpf (Few); White Blood Cells, Urine 0-2 /hpf (0-5)
[2023-04-12 04:31] LABS: Base Excess Venous 17.3 mmol/L; Bicarbonate Venous 37.9 mmol/L (24.0-30.0); PCO2 Venous 87.9 mmHg (38-42); pH Blood Venous 7.31 (7.34-7.37)
--- NOTE | 2023-04-12 07:08 | NUR ---
PATIENT ADMITTED TO ICU. OPENS EYES TO VOICE AND ORIENTED TO SELF. FOLLOWS COMMANDS AND MOVES ALL EXTREMITIES. SR WITH MAPS >65. LEVOPHED NOT STARTED. ON BASELINE 2L NC.
--- NOTE | 2023-04-12 07:18 | NUR ---
RECEIVED REPORT AT BEDSIDE FROM SEFERINO PALMER ANSWERS TO HER NAME, QUIETLY WHISPERS "HOSPITAL" IN REPLY TO WHERE ARE YOU. SHAKES HEAD NO THAT SHE DOESN'T KNOW WHY SHE IS HERE. SEE ASSESSMENT.
[2023-04-12 07:25] LABS: BASOPHILS ABSOLUTE AUTO 0.01 K/mm3 (0.00-0.23); BASOPHILS PERCENT AUTO 0 % (0-2); EOSINOPHILS ABSOLUTE AUTO 0.19 K/mm3 (0.00-0.68); EOSINOPHILS PERCENT AUTO 3 % (0-6); Hematocrit 33.7 % (33.0-51.0); Hemoglobin 10.2 g/dL (11.5-16.0); IMMATURE GRAN ABSOLUTE AUTO 0.01 K/mm3 (0.00-0.10); IMMATURE GRAN PERCENT AUTO 0 % (0-1); LYMPHOCYTES ABSOLUTE AUTO 2.09 K/mm3 (0.84-5.20); LYMPHOCYTES PERCENT AUTO 38 % (21-46); MONOCYTES ABSOLUTE AUTO 0.45 K/mm3 (0.16-1.47); MONOCYTES PERCENT AUTO 8 % (4-13); Mean Corpuscular HGB 31.9 pg (26.0-34.0); Mean Corpuscular HGB Conc 30.3 g/dL (31.5-36.5); Mean Corpuscular Volume 105 fL (80-100); Mean Platelet Volume 11.6 fL (9.1-12.4); NEUTROPHILS ABSOLUTE AUTO 2.81 K/mm3 (1.96-9.15); NEUTROPHILS PERCENT AUTO 51 % (41-73); Platelet Count 137 K/mm3 (150-400); RDW Coefficient Variation 12.4 % (11.7-14.2); RDW Standard Deviation 48.6 fL (35.1-46.3); White Blood Cell Count 5.56 K/mm3 (4.00-11.30)
[2023-04-12 08:01] LABS: Albumin, Blood 2.8 g/dL (3.4-5.0); Bilirubin, Total 0.2 mg/dL (0.1-1.0); Bun/Creatinine Ratio 18.7 (12.0-20.0); Calcium, Blood 7.5 mg/dL (8.5-10.1); Creatinine, Blood 0.43 mg/dL (0.40-1.00); Globulin, Blood 2.8 g/dL (2.2-4.0); Potassium, Blood 4.1 mmol/L (3.5-5.5); Total Protein, Blood 5.6 g/dL (6.4-8.2)
--- NOTE | 2023-04-12 10:45 | NUR ---
"Spiritual Care visit | Nurse request Pt. is somnolent but responds when I enter the room. Sought to build a relationship of care and support by asking guided questions regarding her family support system. Pt. acknowledged that she was living at home on [address] off of [facility]. prior to coming to the hospital. Pt. spoke with a quiet whisper, but displayed evidence of wanting her son consulted regarding her care. Pt. quietly acknowleged that her Aidthya is still at their [address] home. Will remain avilable to Pt. and family."
--- NOTE | 2023-04-12 12:26 | NUR ---
CELESTINO WAS AWAKE AND TALKING WITH THIS RN. BEDSIDE SWALLOW EVAL COMPLETED. SHE PASSED. SHE FINISHED EATING HER PUDDING ON HER OWN. SHE IS ABLE TO REPOSITION INDEPENDENTLY IN HER BED. HER IV FLUIDS HAVE FINISHED. SHE CONTINUES ON NC 2-4L DEPENDING ON BREATHING. HER SATS HOVER~ 90%. LUNG SOUNDS ARE DIMINISHED. SHE EXPRESSES SOME CONCERNS ABOUT HER FAMILY AND TREATMENT SHE RECEIVES. THERAPEUTIC LISTENING.
--- NOTE | 2023-04-12 12:45 | NUR ---
CELESTINO IS SLEEPING AND HER SATS DROPPED TO THE MID 50S, SLOW TO RECOVER SO THE BIPAP WAS PLACED BY DYLON HALL. SATS BEGAN COMING UP. ABOUT 4 MINUTES LATER, WHILE ON THE BIPAP HER SATS DROPPED AGAIN THIS TIME TO THE MID 70S. OXYGEN BLEED IN INCREASED TO 6L. PT CONTINUES TO SLEEP.
--- NOTE | 2023-04-12 15:53 | NUR ---
IN THIS AFTERNOON AND GIVEN UPDATE. CELESTINO HAD A COUPLE OF SPELLS OF DESATURATION TO THE MID 50'S AND MID 70'S WHILE WEARING HER BIPAP. RT CHRISTIAN MADE AWARE. DID BRING IN HER HOME MACHINE AND WE WERE ABLE TO SWITCH HER TO THE SMALLER MASK. REPORT TO MERLENE BETANCUR RN AND TRANSFER TO PCU 5, WITH CHRISTIAN SETTING UP HER HOME MACHINE. MERLENE DID PASS ALONG THAT CELESTINO SAYS SHE IS MISSING A CALIN RING. WHEN I SPOKE WITH HER WE TALKED ABOUT HER RING ON THE RIGHT LITTLE FINGER BEING A YELLOW STONE FROM HER SON, AND THE ONE ON HER LEFT RING FINGER BEING A BLUE STONE. THIS RN DID NOT SEE A CALIN STONE.
--- NOTE | 2023-04-12 16:00 | NUR ---
TRANSFER UPDATE REPORT RECIEVED FROM BARGE HAND AT 1530. PT ARRIVED TO PCU AT 1540 VIA HOSPITAL BED AND ON 3L NC. PT SLID FROM ICU BED TO PCU BED, 3 STAFF MEMBERS. PT APPEARED TO BE RESTING AT TIME OF ARRIVAL BUT WAS ABLE TO AWAKEN FOR SOME ORIENTATION QUESTIONS. PT ABLE TO STATE THAT SHE WAS AT [facility] AND THAT TODAY WAS "SUNDAY OR SUNDAY." PT ORIENTED TO SELF AND STAFF. PT ABLE TO EXPRESS NEEDS. PT ORIENTED TO PCU ROOM AND BOSSTED IN BED TO COMFORT. PT REQUESTED YOGURT AT TIME OF ARRIVAL. YOGURT PROVIDED, PT ABLE TO FEED SELF AND TOLERATING WELL. RT PRESENT AT TIME OT TRANSFER AND CONTINUED PT ON 3L NC.
--- NOTE | 2023-04-12 16:53 | NUR ---
PT ENZO AND SON IN-LAW TO SEE PT. THIS RN WAS IN GETTING EVENING VITALS AND PT DAUGHTER WAS ASKING PT FOR UPDATES. THIS RN ASKED PT IF IT WAS OK TO UPDATE FAMILY, PT AGREED. DAUGHTER UPDATED ON PT CONDITION AND INFORMED THAT THE PT WAS GOING TO NEED TO USE HER BIPAP MACHINE MORE AFTEN AT HOME. THE DAUGHTER EXPRESSED FRUSTRATION ABOUT FAMILY REMOVING BIPAP WHEN EVER PT REQUESTS TO HAVE IT REMOVED. THIS RN EDUCATED PT AND DAUGHTER OF IMPORTANCE OF ADHERING TO O2 THERAPY. THIS RN ASKED FOR CLARIFICATION IF PT WAS INDEED ON HOSPICE PRIOR WEEKS. PT DAUGHTER STATED THAT THE PT WAS NEVER ON HOSPICE AND THAT SHE ONLY HAD HOME HEALTH VISITS. PT DAUGHTER EXPRESSED FRUSTRATION ON THE FACT THAT "NOBODY FROM HOME HEALTH EVER SHOWED UP TO SETUP OR SHOW HER OR ANYBODY HOW TO USE HER BREATHING MACHINE." PREVIOUS CONVRSATION WITH OSCAR FROM CASE MANAGMENT INDICATED THAT BIPAP WAS SETUP.
--- NOTE | 2023-04-12 19:29 | NUR ---
SHIFT SUMMARY PT A/OX4 AND COOPERAIVE OF CARE SINCE ARRIVAL TO UNIT. BP'S SOFT, SEE CHARTS. OTHER VSS WITH O2 SATS IN THE 90'S ON 2-3L NC. NO REPORT OF SOB/DYSPNEA. NO REPORT OF CHEST PAIN/PRESSURE SINCE ARRIVAL. PT A SBA TO [facility] USING FWW. PT HOME CPAP AT BEDSIDE, PT BEING ENCOURAGED TO USE FREQUENTLY. NO ACUTE EVENTS.
[2023-04-13] VITALS (7 sets, daily range): BP systolic 93–115; BP diastolic 56–68
[2023-04-13 04:15] LABS: Hematocrit 36.3 % (33.0-51.0); Hemoglobin 10.7 g/dL (11.5-16.0); Mean Corpuscular HGB 31.2 pg (26.0-34.0); Mean Corpuscular HGB Conc 29.5 g/dL (31.5-36.5); Mean Corpuscular Volume 106 fL (80-100); Mean Platelet Volume 11.8 fL (9.1-12.4); Platelet Count 153 K/mm3 (150-400); RDW Coefficient Variation 12.3 % (11.7-14.2); RDW Standard Deviation 48.2 fL (35.1-46.3); Red Blood Cell Count 3.43 M/mm3 (3.80-5.20); White Blood Cell Count 6.02 K/mm3 (4.00-11.30)
--- NOTE | 2023-04-13 04:26 | NUR ---
SHIFT SUMMARY PT ALERT AND ORIENTED X 4, CONFUSED AT TIMES, COOPERATIVE WITH CARE, AND ABLE TO MAKE NEEDS KNOWN. PT ON 2L NC THE MAJORITY OF THE SHIFT, SHE HAS BIPAP WELL BUT ISN'T COMPLIANT WITH IT AT HOME, AND ONLY AGREED TO WEAR IT ONCE TONIGHT FOR AN HOUR OR SO. SHE WOKE UP SAYING SHE WAS PANICKING AND WANTED THE BIPAP OFF. SHE SAID SHE DOESN'T LIKE WEARING IT AND DOESN'T LIKE HOW IT MAKES HER FEEL. I ASKED PATIENT IF SHE FELT SHE NEEDED SOMETHING TO HELP WITH HER ANXIETY AND SHE SAID YES BUT SHE DIDN'T WANT ANYTHING THAT WOULD SEDATE HER. I SPOKE WITH DOCTOR AND MEDICATED PT PER ORDERS. WHEN I RE-EVALUATED PT SHE SAID THAT SHE STILL FELT THE SAME, I ASKED HER IF SHE WOULD LIKE TO TRY ANOTHER DOSE PER EMAR, SHE SAID NO. I THEN ASKED HER IF SHE WOULD LIKE TO TRY ANYTHING ELSE, AND SHE SAID NO. PT HAS BEEN EDUCATED ON IMPORTANCE OF WEARING HER BIPAP MULTIPLE TIMES THIS SHIFT. PT CONTINUES TO REFUSE. PT HAS MAINTAINED 02 SATURATION ABOVE 90% THE MAJORITY OF SHIFT. WHEN PT WOKE UP IN A PANICK AND WANTED HER BIPAP OFF SHE DROPPED INTO HIGH 70'S AND QUICKLY RECOVERED INTO 90'S. SBP HAS REMAINED ABOVE 100 AND MAP ABOVE 65, HR SR 80'S-90'S, PT DENIES CHEST PAIN/PRESSURE. PT INCONTINENT AND WEARS BRIEF, CHANGED PRN, Q2 TURNS. PT DENIES PAIN. PT HAS HAD NO VISITORS THIS SHIFT. PT HAS BEEN RESTING IN BED WITH TV ON. SHE WAS AWAKE ON AND OFF THROUGHOUT THE SHIFT. PT CURRENTLY RESTING IN BED WITH TV ON, CALL LIGHT WITHIN REACH.
[2023-04-13 05:08] LABS: Anion Gap Unable to Calculate mmol/L (6-16); Blood Urea Nitrogen 16 mg/dL (8-24); Bun/Creatinine Ratio 29.2 (12.0-20.0); CO2, Blood >45 mmol/L (21-32); Calcium, Blood 8.6 mg/dL (8.5-10.1); Chloride, Blood 101 mmol/L (98-108); Creatinine, Blood 0.55 mg/dL (0.40-1.00); Glomerular Filtration Rate 103 (60-); Glucose, Blood 99 mg/dL (70-99); Potassium, Blood 4.5 mmol/L (3.5-5.5); Sodium, Blood 143 mmol/L (136-145)
[2023-04-13 07:10] LABS: PO2 Arterial 71.8 mmHg (80-100)
[2023-04-13 07:12] LABS: PCO2 Arterial 102 mmHg (35-45); pH Blood Arterial 7.26 (7.35-7.45)
--- NOTE | 2023-04-13 09:56 | NUR ---
CARE ASSUMPTION this rn assumed care at 0700. vital signs stable. patient is lethargic, likely due to co2 levels. patient is on bipap. spo2 >90%. tele sr. patient shakes head and says no when asked questions. patient falls back asleep quickly. patient denies chest pain/pressure, shortness of breath or pain. see shift assessment for further detials. plan of care is up to date at this time.
[2023-04-13 11:49] LABS: PO2 Arterial 63.2 mmHg (80-100); pH Blood Arterial 7.39 (7.35-7.45)
[2023-04-13 11:50] LABS: PCO2 Arterial 77.1 mmHg (35-45)
--- NOTE | 2023-04-13 14:16 | NUR ---
Review of pt with staff, pt nurse and repiritory theapist. pt resting in bed after eating a few bites. Eye closed tightly and grimacing. nods yes or no to questions. PT nods yes to having a headache and some ringing in ears. Nods yes to breathing being difficult and tight. Denies chest pain or nausea. Nods yes to back and shoulders being painfull. Pt looks pale and thin and very frail. Minimal ability to participate. kps score is 30%. Called daughter to discuss care. No answer left her a message. pt precarious for sudden event. Pt owould be best served by a hospice care plan. Will follow up with family.
--- NOTE | 2023-04-13 17:22 | NUR ---
shift summary patient woke up more this afternoon and had lunch. patient is alert and oriented x4. patient co2 level improved, and appears to be at patient baseline. patient educated on wearing triology at night to help prevent an increase in co2 levels and mentation change. patient verbalized understanding and agreed to wear it this evening. patient verbalized understanding the importance of wearing triology and only taking anxiety medications as needed at home, and ensuring to having triology on. this rn educated on the risks of respiratory depression and explained how that occured and is what brought the patient in. patient verbalized understanding. plan of care is up to date.
--- NOTE | 2023-04-13 20:40 | NUR ---
PT IS ALERT AND ORIENTED X 4, COOPERATIVE WITH CARE AND ABLE TO MAKE NEEDS KNOWN. MYSELF, RESPIRATORY THERAPY, AND DAY SHIFT NURSE SPOKE WITH PT ABOUT WEARING BIPAP TONIGHT, PT HAS REASSURED ME THAT SHE WILL WEAR HER BIPAP TONIGHT WHILE SLEEPING. HOWEVER, SHE IS NOT READY TO GO TO SLEEP YET AND WOULD LIKE TO WAIT UNTIL LATER. SHE IS CURRENTLY ON 3L NC AND MAINTAINING O2 SATURATION ABOVE 90%. HR SR 80'S, PT DENIES CHEST PAIN/PRESSURE. SHE CONTINUES TO BE CONTINENT OF URINE. PT REFUSED HER STOOL SOFTENER TONIGHT. HER DAUGHTER CALLED HER ON HER ROOM PHONE AT BEGINNING OF SHIFT AND SHE SPOKE WITH HER FOR A LITTLE WHILE. PT IS LAYING IN BED AND WATCHING TV, CALL LIGHT WITHIN REACH.
[2023-04-14 03:11] VITALS: BP 91/73
[2023-04-14 04:25] LABS: Albumin, Blood 2.8 g/dL (3.4-5.0); Blood Urea Nitrogen 14 mg/dL (8-24); Bun/Creatinine Ratio 25.5 (12.0-20.0); Calcium, Blood 8.4 mg/dL (8.5-10.1); Chloride, Blood 100 mmol/L (98-108); Creatinine, Blood 0.55 mg/dL (0.40-1.00); Glomerular Filtration Rate 103 (60-); Glucose, Blood 81 mg/dL (70-99); Phosphorus, Blood 2.7 mg/dL (2.5-4.9); Sodium, Blood 143 mmol/L (136-145)
[2023-04-14 04:27] LABS: Anion Gap Unable to Calculate mmol/L (6-16); CO2, Blood >45 mmol/L (21-32)
[2023-04-14 04:40] LABS: PO2 Arterial 83.7 mmHg (80-100); pH Blood Arterial 7.38 (7.35-7.45)
--- NOTE | 2023-04-14 04:54 | NUR ---
SHIFT SUMMARY NO ACUTE CHANGES, SEE PREVIOUS NOTE. PT HAS BEEN ON BIPAP SINCE APPROXIMATELY 10:00PM, SHE CONTINUES TO MAINTAIN 02 SATURATION ABOVE 90%. HR CONTINUES TO BE SR AND 80'S, MAP OVER 65, SHE HAS DENIED CHEST PAIN/PRESSURE ALL SHIFT. PT CONTINUES TO USE BEDSIDE COMMODE AND TOLERATES WELL. PT HAD A COUPLE VISITORS AT BEGINNING OF SHIFT. PT HAS SLEPT THE MAJORITY OF THE NIGHT. SHE IS CURRENTLY STILL SLEEPING WITH THE TV ON, CALL LIGHT WITHIN REACH.
[2023-04-14 08:29] VITALS: BP 106/58
[2023-04-14] MEDS ORDERED: MIRALAX11910 PO (10:14)
--- NOTE | 2023-04-14 10:22 | NUR ---
CARE ASSUMPTION this rn assumed care at 0700. vital signs stable. tele sr. patient is alert and oriented x4. perrla. patient reports no pain, chest pain/pressure or shortness of breath. see shift assessment for further detials. md martinezng in to see patient and discussed plan of care. patient educated on using lorazapam and not having trilogy. this rn educated patient on not touching the trilogy settings or having family touch. patient verbalized understanding. plan for discharge today and refferal for home health. plan of care is up to date
--- NOTE | 2023-04-14 11:33 | NUR ---
DISCHARGE this rn went over discharge education with the patient and patient family. this rn went over medications to stop and medications to continue and what each medications purpose is. this rn went over education to wear trilogy at home over night and when sleeping. this rn went over follow-up appointment with primary care provier within one week. patient and verbalized understanding. patient and left with all belongings. patient left in no distess.
== END 2023-04-14 11:30 | disposition home health service (06) | DRG 189 ==
LOC: ER 01:22 → PCU 05:15 → ICUE 05:15 → PCU 15:36
PROVIDERS: Emergency Medicine; Internal Medicine; ADMIT Student in an Organized Health Care Education/Training Program
PROC: 5A09457 Assistance with Respiratory Ventilation, 24-96 Consecutive Hours, Continuous Positive Airway Pressure (ICD-10-PCS; principal; 2023-04-12)
PROC: 4A133R1 Monitoring of Arterial Saturation, Peripheral, Percutaneous Approach (ICD-10-PCS; 2023-04-12)
DX: J96.21 Acute and chronic respiratory failure with hypoxia (principal); G93.41 Metabolic encephalopathy; E43 Unspecified severe protein-calorie malnutrition; I50.32 Chronic diastolic (congestive) heart failure; Z68.1 Body mass index [BMI] 19.9 or less, adult; Z66 Do not resuscitate; J96.22 Acute and chronic respiratory failure with hypercapnia; T42.4X5A Adverse effect of benzodiazepines, initial encounter; I95.89 Other hypotension; J44.9 Chronic obstructive pulmonary disease, unspecified; I27.20 Pulmonary hypertension, unspecified; M81.0 Age-related osteoporosis without current pathological fracture; J43.9 Emphysema, unspecified; Z99.81 Dependence on supplemental oxygen; Z91.199 Patient's noncompliance with other medical treatment and regimen due to unspecified reason; Z90.49 Acquired absence of other specified parts of digestive tract
CPT/HCPCS: 36415; 36600; 70450; 71045; 80048; 80053; 80069; 81001; 82550; 82803; 82947; 83605; 83735; 84100; 84443; 84484; 85025; 85027; 93005; 93010; 94640; 94660; 94664; 94762; 96360; 96361; 99285-25; A9270; J1650; J2930; J7030; J7060; J7120; Q0177

== ENCOUNTER → 2023-04-16 | Outpatient (CLI) | payer OTHER ==
[~2023-04-16] MED LIST changes: +LORA1; +MIRALAX11910 PO; +TEMA7.5 PO
== END | disposition home or self-care (01) ==
LOC: LAB SHORT 10:00 → LAB 10:00
DX: R41.0 Disorientation, unspecified (principal)
CPT/HCPCS: 87086

== ENCOUNTER 2023-10-31 04:10 | Inpatient (IN) | payer OTHER ==
[~2023-10-31] VITALS: Ht 152.4 cm; Wt 43.0 kg
[~2023-10-31 04:10] MED LIST changes: +ESCI20 PO; +RAYOS5 M1 PO; +SENN187 PO
[2023-10-31] MEDS ORDERED: Ipratropium/Albuterol SulF 2.5-0.5MG/3 ML Amp INH ONE (04:15)
[2023-10-31] MEDS ORDERED: Albuterol 2.5 MG/3 ML VIAL INH SCH (04:15)
[2023-10-31] MEDS ORDERED: MethylPREDNISolone Sod Succ 125 MG Vial IV ONE (04:20)
[2023-10-31 04:28] LABS: BASOPHILS ABSOLUTE AUTO 0.02 K/mm3 (0.00-0.23); BASOPHILS PERCENT AUTO 0 % (0-2); EOSINOPHILS ABSOLUTE AUTO 0.09 K/mm3 (0.00-0.68); EOSINOPHILS PERCENT AUTO 2 % (0-6); Hemoglobin 10.4 g/dL (11.5-16.0); IMMATURE GRAN ABSOLUTE AUTO 0.01 K/mm3 (0.00-0.10); IMMATURE GRAN PERCENT AUTO 0 % (0-1); LYMPHOCYTES ABSOLUTE AUTO 1.35 K/mm3 (0.84-5.20); LYMPHOCYTES PERCENT AUTO 24 % (21-46); MONOCYTES ABSOLUTE AUTO 0.56 K/mm3 (0.16-1.47); MONOCYTES PERCENT AUTO 10 % (4-13); Mean Corpuscular HGB 31.7 pg (26.0-34.0); Mean Corpuscular HGB Conc 28.9 g/dL (31.5-36.5); Mean Corpuscular Volume 110 fL (80-100); Mean Platelet Volume 11.1 fL (9.1-12.4); NEUTROPHILS ABSOLUTE AUTO 3.58 K/mm3 (1.96-9.15); NEUTROPHILS PERCENT AUTO 64 % (41-73); Platelet Count 152 K/mm3 (150-400); RDW Coefficient Variation 13.1 % (11.7-14.2); RDW Standard Deviation 52.2 fL (35.1-46.3); Red Blood Cell Count 3.28 M/mm3 (3.80-5.20); White Blood Cell Count 5.61 K/mm3 (4.00-11.30)
[2023-10-31 04:44] LABS: Base Excess Venous 31.5 mmol/L; Bicarbonate Venous 51.5 mmol/L (24.0-30.0); PCO2 Venous > 105 mmHg (38-42); pH Blood Venous 7.34 (7.34-7.37)
[2023-10-31 04:48] LABS: Magnesium, Blood 2.2 mg/dL (1.6-2.4)
[2023-10-31 04:52] LABS: Alanine Aminotransfer (ALT/SGP 29 U/L (12-78); Albumin, Blood 3.5 g/dL (3.4-5.0); Albumin/Globulin Ratio 1.1 (0.8-1.8); Alk Phos 55 U/L (50-136); Aspartate Aminotrans (AST/SGOT 36 U/L (12-37); Bilirubin, Total 0.2 mg/dL (0.1-1.0); Blood Urea Nitrogen 18 mg/dL (8-24); Bun/Creatinine Ratio 31.2 (12.0-20.0); Calcium, Blood 9.3 mg/dL (8.5-10.1); Chloride, Blood 88 mmol/L (98-108); Creatinine, Blood 0.58 mg/dL (0.40-1.00); Globulin, Blood 3.2 g/dL (2.2-4.0); Glomerular Filtration Rate 102 (60-); Glucose, Blood 93 mg/dL (70-99); Potassium, Blood 4.8 mmol/L (3.5-5.5); Sodium, Blood 138 mmol/L (136-145); Total Protein, Blood 6.7 g/dL (6.4-8.2)
[2023-10-31 04:53] LABS: Anion Gap Unable to Calculate mmol/L (3-11)
[2023-10-31 04:54] LABS: CO2, Blood >45 mmol/L (21-32)
[2023-10-31 04:59] LABS: PCO2 Arterial > 105 mmHg (35-45); PO2 Arterial 285 mmHg (80-100)
[2023-10-31] MEDS ORDERED: Acetaminophen 325 MG TABLET PO PRN (05:50)
[2023-10-31] MEDS ORDERED: Sennosides 8.6 MG Tab PO PRN (05:55)
[2023-10-31] MEDS ORDERED: Ipratropium/Albuterol SulF 2.5-0.5MG/3 ML Amp INH SCH (05:55)
[2023-10-31] MEDS ORDERED: MethylPREDNISolone Sod Succ 125 MG Vial IV SCH ×2 (06:00→12:00)
[2023-10-31] MEDS ORDERED: Lactated Ringer's 1,000 ML IV SCH (06:00)
[2023-10-31 07:08] VITALS: BP 127/72
--- NOTE | 2023-10-31 07:30 | NUR ---
ARRIVAL TO PCU NOTE RECEIVED REPORT FROM KARY DARLING AT 0620, PT SHORTLY ARRIVED TO PCU 17 AT 0655 THIS AM. ARRIVED ON BIPAP 16/8 FIO2 35% MAINTAINING SPO2 >95%. LS VERY DIMINISHED T/O. RR RANGING MID 20'S. LETHARGIC, BUT ABLE TO SHAKE HEAD AT YES OR NO QUESTIONS. TELEMETRY SHOWS SR-ST 90-100'S. SBP RANGING 120'S. TRANSFERRED FROM [facility] TO PCU BED VIA SLIDE SHEET. REPORT GIVEN TO CLAY WASHERDYLON AZUL
[2023-10-31 07:45] LABS: PCO2 Venous 94.4 mmHg (38-42); pH Blood Venous 7.38 (7.34-7.37)
[2023-10-31 07:46] LABS: Base Excess Venous 30.2 mmol/L; Bicarbonate Venous 50.5 mmol/L (24.0-30.0)
[2023-10-31] MEDS ORDERED: Calcium/Vit D 600 mg-400 Unit Tab PO SCH (08:00)
[2023-10-31] MEDS ORDERED: Citalopram Hydrobromide 20 MG Tab PO SCH (09:00)
[2023-10-31] MEDS ORDERED: AZIT250 PO (12:45)
[2023-10-31 13:01] VITALS: BP 106/59
[2023-10-31 14:24] LABS: Base Excess Venous 27.8 mmol/L; PCO2 Venous 87.4 mmHg (38-42); pH Blood Venous 7.39 (7.34-7.37)
[2023-10-31] MEDS ORDERED: Mometasone/Formoterol MDI 100/5 mcg 13 GM INH SCH (15:15)
[2023-10-31] MEDS ORDERED: NS 1,000 ML IV SCH (16:00)
[2023-10-31 16:40] VITALS: BP 110/62
[2023-10-31] MEDS ORDERED: LORazepam 0.5 MG Tab PO PRN (18:50)
--- NOTE | 2023-10-31 19:19 | NUR ---
ASSUMED CARE OF PT AT 0700 THIS AM. ADMISSION DOCUMENTATION COMPLETED AND MED REC OBTAINED FROM PT'S PHARMACY. PT ARRIVES WITH AMS AND IS UNABLE TO ANSWER QUESTIONS, NO FAMILY AT BEDSIDE. SEE DOCUMENTED VS AND ASSESSMENT. T/O THE MORNING PT'S MENTAL STATUS BEGINS TO CLEAR AND SHE BECOMES MORE AWAKE. DR STILESETI IN TO ASSESS PT IN AM AND AFTERNOON. SEE DOCUMENTED BLOOD GAS RESULTS FOR PT'S PROGRESS ON BIPAP. APROX 1300, PT WAS TAKEN OFF BIPAP FOR A DRINK OF WATER AND SHE REFUSED TO PUT IT BACK ON. SHE WAS A&OX3 AT THIS POINT. PLACED ON 3L O2 VIA NC, SPO2 LOW 90s. PT HAD FAMILY IN AND OUT T/O THE DAY. DR TAVERAS CONSULTED AND CAME TO ROOM TO EVALUATE PT. DR TAVERAS STATES THAT PT MUST WEAR HER BIPAP WHILE SLEEPING BECAUSE OF HER CO2 RETENTION. PT APPEARS TO HAVE IMPROVED T/O THE DAY. SHE IS NOW ABLE TO MAKE HER NEEDS KNOWN AND USE CALL LIGHT MOST OF THE TIME. REPORT GIVEN TO DYLON PARNELL, FOR NOC SHIFT.
[2023-10-31 19:50] VITALS: BP 115/68
[2023-11-01 00:57] VITALS: BP 100/68
[2023-11-01 03:03] VITALS: BP 114/81
[2023-11-01 04:27] LABS: Base Excess Venous 20.8 mmol/L; Bicarbonate Venous 40.9 mmol/L (24.0-30.0); PCO2 Venous 77.2 mmHg (38-42); pH Blood Venous 7.38 (7.34-7.37)
[2023-11-01 04:38] LABS: BASOPHILS PERCENT AUTO 0 % (0-2); EOSINOPHILS PERCENT AUTO 0 % (0-6); Hemoglobin 10.8 g/dL (11.5-16.0); IMMATURE GRAN ABSOLUTE AUTO 0.01 K/mm3 (0.00-0.10); IMMATURE GRAN PERCENT AUTO 0 % (0-1); LYMPHOCYTES ABSOLUTE AUTO 0.48 K/mm3 (0.84-5.20); LYMPHOCYTES PERCENT AUTO 17 % (21-46); MONOCYTES ABSOLUTE AUTO 0.06 K/mm3 (0.16-1.47); MONOCYTES PERCENT AUTO 2 % (4-13); Mean Corpuscular HGB 31.5 pg (26.0-34.0); Mean Corpuscular Volume 105 fL (80-100); Mean Platelet Volume 11.6 fL (9.1-12.4); NEUTROPHILS ABSOLUTE AUTO 2.26 K/mm3 (1.96-9.15); NEUTROPHILS PERCENT AUTO 80 % (41-73); Platelet Count 161 K/mm3 (150-400); RDW Coefficient Variation 13.4 % (11.7-14.2); RDW Standard Deviation 51.1 fL (35.1-46.3); Red Blood Cell Count 3.43 M/mm3 (3.80-5.20); White Blood Cell Count 2.81 K/mm3 (4.00-11.30)
[2023-11-01 05:03] LABS: Albumin, Blood 3.3 g/dL (3.4-5.0); Bilirubin, Total 0.4 mg/dL (0.1-1.0); Bun/Creatinine Ratio 32.7 (12.0-20.0); Calcium, Blood 8.8 mg/dL (8.5-10.1); Creatinine, Blood 0.49 mg/dL (0.40-1.00); Globulin, Blood 3.3 g/dL (2.2-4.0); Magnesium, Blood 1.8 mg/dL (1.6-2.4); Potassium, Blood 4.1 mmol/L (3.5-5.5); Total Protein, Blood 6.6 g/dL (6.4-8.2)
--- NOTE | 2023-11-01 05:13 | NUR ---
SHIFT SUMMARY PT A&Ox3-4, AT TIMES PT WOKE UP CONFUSED, ANXIOUS AND DIFFICULT TO REORIENT. RT AND THIS RN PROVIDED EDUCATION MULTIPLE TIMES ABOUT IMPORTANCE OF WEARING BIPAP, PT STILL TAKING IT OFF FREQUENTLY. SpO2> 92% 3L OR HOME TRILOGY, DENIES SOB. BP STABLE, SINUS 90's, DENIES CP/PRESSURE. CONTINENT OF URINE AND BOWEL, SBA TO BSC. NO OTHER EVENTS, WILL REPORT TO ONCOMING RN.
[2023-11-01 08:18] VITALS: BP 108/74
[2023-11-01] MEDS ORDERED: Enoxaparin 30 MG/0.3 ML SYR SC SCH (09:00)
[2023-11-01] MEDS ORDERED: Enoxaparin 40 MG/0.4 ML SYR SC SCH (09:00)
[2023-11-01] MEDS ORDERED: Citalopram Hydrobromide 20 MG Tab PO SCH (09:00)
[2023-11-01] MEDS ORDERED: NS 1,000 ML IV SCH (10:00)
--- NOTE | 2023-11-01 11:01 | NUR ---
ASSUMED CARE OF PT AT 0700 FROM NOC SHIFT RN. APROX 0800 MASTER FIRE CONTROL TECHNICIAN BROUGHT PT BREAKFAST AND PT IS NOTED TO BE VERY SOMULENT, WON'T OPEN EYES OR RESPOND TO QUESTIONS, MYOCLONIC JERKING NOTED. PT TAKEN OFF O2 VIA NC AND PLACED ON HOME TRILOGY. APROX 0900 PT AWAKE AND ALERT, ORIENTED X 2, ON NC 02 3L AND EATING BREAKFAST. DR ARNOLD AND DR TAVERAS MADE AWARE OF THIS EPISODE ON ROUNDS. AFTER BREAKFAST PT PLACED BACK ON TRILOGY WITH CONTINUOUS O2 MONITORING. WILL CONTINUE TO MONITOR, CALL BELLO IN PLACE.
--- NOTE | 2023-11-01 17:51 | NUR ---
NO ACUTE CHANGES SINCE LAST NOTE. PT HAS BEEN ON AND OFF HER TRILOGY T/O THE DAY. LORAZEPAM GIVEN ONCE FOR ANXIETY, PT STATED SHE DIDN'T FEEL LIKE IT WAS HELPFUL. PT HAS BEEN A&OX2-3, INTERMITTENTLY USES CALL LIGHT FOR NEEDS. PT IS VERY UNSTABLE ON HER FEET, BED ALARM ON FOR SAFETY. PT INSTRUCTED NOT TO GET OOB WITHOUT STAFF ASSISTANCE. KRISTA OSBORNE, FROM PALLIATIVE CARE, STATES SHE WILL FOLLOW UP WITH PT TOMORROW, HOPEFULLY, WHEN FAMILY IS PRESENT IN THE ROOM TO DISCUSS CARE PLANNING FOR CELESTINO. SEE CONSULT NOTE FROM DR TAVERAS TODAY, PT NEEDS TO BE COMPLIANT WITH TRILOGY USE AT HOME OR BE ENROLLED IN HOSPICE AGAIN. ATTEMPTED TODAY TO GET PT TO WEAR THE TRIOLOGY MUCH POSSIBLE AND TAKE BREAKS FOR MEALS AND TOILETING, PT DECLINED. REPEATEDLY REMINDED PT TO WEAR HER TRILOGY T/O THE DAY. PT DESATURATES SEVERELY WITH ANY ACTIVITY, LOW 60-70s. WILL CONTINUE TO MONITOR AND GIVE REPORT TO NOC SHIFT RN, CALL LIGHT IN REACH. PT CURRENTLY BACK ON TRILOGY AFTER BEING FOUND BY THIS RN NEARLY UNRESPONSIVE AGAIN.
[2023-11-01 19:57] VITALS: BP 117/72
[2023-11-01 23:34] VITALS: BP 106/69
[2023-11-02 04:20] LABS: BASOPHILS PERCENT AUTO 0 % (0-2); EOSINOPHILS PERCENT AUTO 0 % (0-6); IMMATURE GRAN ABSOLUTE AUTO 0.01 K/mm3 (0.00-0.10); IMMATURE GRAN PERCENT AUTO 0 % (0-1); LYMPHOCYTES ABSOLUTE AUTO 0.48 K/mm3 (0.84-5.20); LYMPHOCYTES PERCENT AUTO 11 % (21-46); MONOCYTES ABSOLUTE AUTO 0.14 K/mm3 (0.16-1.47); MONOCYTES PERCENT AUTO 3 % (4-13); Mean Corpuscular HGB 31.6 pg (26.0-34.0); Mean Corpuscular HGB Conc 30.3 g/dL (31.5-36.5); Mean Corpuscular Volume 104 fL (80-100); Mean Platelet Volume 11.3 fL (9.1-12.4); NEUTROPHILS ABSOLUTE AUTO 3.59 K/mm3 (1.96-9.15); NEUTROPHILS PERCENT AUTO 85 % (41-73); Platelet Count 175 K/mm3 (150-400); RDW Coefficient Variation 13.7 % (11.7-14.2); RDW Standard Deviation 53.1 fL (35.1-46.3); Red Blood Cell Count 3.16 M/mm3 (3.80-5.20); White Blood Cell Count 4.22 K/mm3 (4.00-11.30)
[2023-11-02 04:30] VITALS: BP 108/70
[2023-11-02 05:06] LABS: Bun/Creatinine Ratio 36.1 (12.0-20.0); Calcium, Blood 8.7 mg/dL (8.5-10.1); Creatinine, Blood 0.5 mg/dL (0.40-1.00); Phosphorus, Blood 1.7 mg/dL (2.5-4.9); Potassium, Blood 4.2 mmol/L (3.5-5.5)
--- NOTE | 2023-11-02 05:59 | NUR ---
SHIFT SUMMERY PT HAS BEEN ALERT AND ORIENTED X3, ALTERNATING BETWEEN NC AND ASTRAL FOR OXYGEN NEEDS. PT HAS HAD NO COMPLAINTS OF PAIN AND VS HAVE BEEN STABLE THROUGHOUT THE NIGHT. PT HAD FAMILY VISIT EARLIER IN THE SHIFT AND THERE HAS BEEN NO ACUTE CHANGES TO PT PLAN OF CARE OVERNIGHT.
[2023-11-02 07:31] VITALS: BP 108/68
--- NOTE | 2023-11-02 08:05 | NUR ---
AM NOTE this rn assumed care at 0700. vital signs stable. spo2 >90% on 4l nc. tele sinus rhythm 91. respiratory therpay by and placed bipap on patient due to patient sleeping. this rn received called from tele that patient spo2 in the low 70s with a good wave form. this rn into room and patient on bipap but with a leak. this rn held the mask to patient face and called respiratory therapist, brant. brant in room and switched to smaller mask that would fit patient face. spo2 >90%. patient switched to nasal cannula whenbreakfast arrived on 4l nc. spo2>90%. no signs of respiratory distress at this time. patient is alert and oriented x4. neuro is intact. perrla. able to make needs known. denies chest pain/pressure, pain or shortness of breath. see shift assessment for further detials.
[2023-11-02] MEDS ORDERED: Sodium Phosphate 20 MM in Dextrose 5% 500 ML IV STA (08:22)
[2023-11-02] MEDS ORDERED: Multivitamins/Minerals TAB PO SCH (09:00)
[2023-11-02] MEDS ORDERED: Thiamine HCl 100 MG Tab PO SCH (09:00)
--- NOTE | 2023-11-02 10:11 | NUR ---
update patient off of home triology toe at breakfast. patient fell asleep after eating breakfast and desatted into the 50s. tele monitor called this rn. this rn in room and placed on home triology. spo2 >90%.
[2023-11-02 11:23] VITALS: BP 115/59
[2023-11-02 16:32] VITALS: BP 114/88
[2023-11-02 16:58] LABS: Base Excess Venous 20.4 mmol/L; Bicarbonate Venous 41.2 mmol/L (24.0-30.0); PCO2 Venous 68.6 mmHg (38-42); pH Blood Venous 7.42 (7.34-7.37)
--- NOTE | 2023-11-02 18:30 | NUR ---
SHIFT SUMMARY patient neuro remains intact. vital signs stable. tele sinus rhythm. patient on home bipap sleeping until about 1400 and has been off since then on 4l nc with spo2 >90%. no acute changes this shift. plan remains up to date
[2023-11-02 20:00] VITALS: BP 130/60
--- NOTE | 2023-11-02 20:00 | NUR ---
ASSUMED CARE OF PT AT 1900. REPORT RECEIVED AT BEDSIDE. PT PRESENTS IN BED SLEEPING. NO APPARENT S/S DISTRESS. DISCUSSED PLAN OF CARE AND CONCERNS ABOUT PT'S HOME MASK NOT FITTING WELL. WILL REVIEW CHART AND PLAN OF CARE FOR THIS PT.
[2023-11-03] MEDS ORDERED: MethylPREDNISolone Sod Succ 125 MG Vial IV SCH
--- NOTE | 2023-11-03 | NUR ---
PT HAS LOW GRADE FEVER WHICH IS PARTIALLY RELATED TO EXTRA BLANKETS ON BED. PT VOICES NO COMPLAINTS AT THIS TIME. WILL CONTINUE TO MONITOR.
[2023-11-03 00:40] VITALS: BP 110/63
[2023-11-03 03:47] VITALS: BP 117/75
[2023-11-03 05:38] LABS: BASOPHILS PERCENT AUTO 0 % (0-2); EOSINOPHILS PERCENT AUTO 0 % (0-6); Hematocrit 36.5 % (33.0-51.0); Hemoglobin 11.2 g/dL (11.5-16.0); IMMATURE GRAN ABSOLUTE AUTO 0.01 K/mm3 (0.00-0.10); IMMATURE GRAN PERCENT AUTO 0 % (0-1); LYMPHOCYTES ABSOLUTE AUTO 0.33 K/mm3 (0.84-5.20); LYMPHOCYTES PERCENT AUTO 5 % (21-46); MONOCYTES ABSOLUTE AUTO 0.14 K/mm3 (0.16-1.47); MONOCYTES PERCENT AUTO 2 % (4-13); Mean Corpuscular HGB Conc 30.7 g/dL (31.5-36.5); Mean Corpuscular Volume 104 fL (80-100); Mean Platelet Volume 11.4 fL (9.1-12.4); NEUTROPHILS ABSOLUTE AUTO 5.69 K/mm3 (1.96-9.15); NEUTROPHILS PERCENT AUTO 92 % (41-73); Platelet Count 185 K/mm3 (150-400); RDW Coefficient Variation 13.8 % (11.7-14.2); RDW Standard Deviation 52.5 fL (35.1-46.3); White Blood Cell Count 6.17 K/mm3 (4.00-11.30)
[2023-11-03 06:16] LABS: Albumin, Blood 2.9 g/dL (3.4-5.0); Anion Gap 4 mmol/L (3-11); Blood Urea Nitrogen 17 mg/dL (8-24); Bun/Creatinine Ratio 32.8 (12.0-20.0); CO2, Blood 43 mmol/L (21-32); Calcium, Blood 9.3 mg/dL (8.5-10.1); Chloride, Blood 96 mmol/L (98-108); Creatinine, Blood 0.52 mg/dL (0.40-1.00); Glomerular Filtration Rate 104 (60-); Glucose, Blood 162 mg/dL (70-99); Potassium, Blood 3.9 mmol/L (3.5-5.5); Sodium, Blood 139 mmol/L (136-145)
--- NOTE | 2023-11-03 06:30 | NUR ---
PT MEDICATED WITH TYLENOL FOR TEMP 100.3 PT ALSO STATES THAT SHE HAD A HEADACHE. PT HAS NO FURTHER COMPLAINTS OF HEADACHE. O2 NC AT 3 L/M HELPS PATIENT MAINTAIN > 90 PERCENT SATURATIONS. PT HAS BEEN ABLE TO MOVE ABOUT IN BED ON HER OWN. HAS BEEN UP TO BEDSIDE COMMODE TO OVID. CALLS APPROPRIATELY. PT HAS A HALF SANDWHICH FOR SNACK. PT STATES THAT SHE HAS BEEN LOSING A LOT OF WEIGHT AT HOME. STATES DIFFICULTY EATING SECONDARY TO SHORTNESS OF BREATH. DISCUSSED WITH PT SUPPLEMENTS SUCH ENSURE OR BOOST. ALSO CARNATION INSTANT BREAKFAST FOR CALORIC INTAKE. PT VERBALIZES UNDERSTANDING. PT'S DAUGHTER CALL DURING EVENING. DOES STATE THAT PT REFUSES TO WEAR HER TRILOGY AT HOME. PT STATES THAT MASK IS TOO UNCOMFORTABLE TO WEAR. WILL CONTINUE TO MONITOR PT, AND WILL REPORT OFF TO ONCOMING RN.
--- NOTE | 2023-11-03 08:05 | NUR ---
SHIFT ASSESSMENT PT RESTING COMFORTABLY IN BED. AWAKENS EASILY TO VERBAL STIMULI, A&OX4. RESERVED BUT KIND AND COOPERATIVE WITH CARE. DENIES WORSENING SOB, MAIN C/O LACK OF SLEEP, TRYING TO LIMIT STIMULI PER PT REQUEST. PT REMAINS ON 3LPM O2 VIA NC c SATS >90%. NSR ON THE TUNNEL ELASTIC OPERATOR CHAINSTITCH. BP STABLE. AMBULATES WITH SBA. OTHER CONCERN FOR PT IS HER LACK OF APPETITE. PT ADMITS TO NOT EATING WELL AT HOME & NOT REALLY EATING MUCH HERE.
[2023-11-03] MEDS ORDERED: PredniSONE 20 MG Tab PO SCH (10:30)
[2023-11-03] MEDS ORDERED: Albuterol HFA200 ACT/6.7 GM INH INH PRN (15:15)
--- NOTE | 2023-11-03 18:18 | NUR ---
SHIFT SUMMARY PT REMAINS A&OX4, FOLLOWING COMMANDS. PT STATES SHE IS FEELING BETTER THIS AFTERNOON. REMAINS ON 3-4L O2 VIA NC. REQUESTED HOME TRILOGY FOR ABOUT 1 HR THIS AFTERNOON WHILE NAPPING. TOLERATING SMALL AMNTS OF PO INTAKE. AMBULATES WITH SBA TO COMMODE. PT NOW MEDICAL STATUS, NO TELE.
[2023-11-03 20:05] VITALS: BP 115/74
[2023-11-04 03:27] VITALS: BP 107/71
--- NOTE | 2023-11-04 04:54 | NUR ---
SHIFT SUMMARY PT A&O X4, ABLE TO MAKE NEEDS KNOWN. VSS, AFEBRILE, SPO2 >92% ON 3L NC. PT USED HOME CPAP WHILE ASLEEP. LUNGS DIMINISHED IN THE BASES. SHE DENIES SOB OR CP. PT IS RESTING IN BED, CALL LIGHT WITHIN REACH, BED IN LOWEST POSITION.
[2023-11-04 07:43] VITALS: BP 102/58
[2023-11-04] MEDS ORDERED: IPRAT-ALBUT 0.5-3 ML INH (10:26)
[2023-11-04] MEDS ORDERED: Hair, Skin & N1 EACH PO (10:29)
[2023-11-04] MEDS ORDERED: PRED20 PO (10:29)
[2023-11-04] MEDS ORDERED: PANT20 PO (10:30)
[2023-11-04] MEDS ORDERED: AIRDUO RESPICL1 EAC4 INH (10:30)
--- NOTE | 2023-11-04 12:12 | NUR ---
discharge summary Pt a ox4. vss. pt w/ discharge orders. home 02 maribell done this shift. isauro delivered 02 in room to pt. daughter notified of discharge, sent maury to apple picking supervisor pt. pt to [facility] to have bm prior to discharge. Pt helped dress. IV removed. Discharge paperwork reviewed w/ pt. Home 02 applied. Pt ambulated independently from bed to wheelchair. Pt wheeled out to private vehicle w/ all belongings.
== END 2023-11-04 12:11 | disposition home or self-care (01) | DRG 189 ==
LOC: ER 04:10 → ERHOLD 05:51 → PCU 05:51
PROVIDERS: Family Medicine; Student in an Organized Health Care Education/Training Program; ADMIT Student in an Organized Health Care Education/Training Program
PROC: 5A09357 Assistance with Respiratory Ventilation, Less than 24 Consecutive Hours, Continuous Positive Airway Pressure (ICD-10-PCS; principal; 2023-10-31)
PROC: 4A033R1 Measurement of Arterial Saturation, Peripheral, Percutaneous Approach (ICD-10-PCS; 2023-10-31)
DX: J96.21 Acute and chronic respiratory failure with hypoxia (principal); E43 Unspecified severe protein-calorie malnutrition; G92.8 Other toxic encephalopathy; J44.1 Chronic obstructive pulmonary disease with (acute) exacerbation; I50.32 Chronic diastolic (congestive) heart failure; Z51.5 Encounter for palliative care; Z66 Do not resuscitate; R64 Cachexia; Z68.1 Body mass index [BMI] 19.9 or less, adult; J96.22 Acute and chronic respiratory failure with hypercapnia; I27.20 Pulmonary hypertension, unspecified; J43.9 Emphysema, unspecified; M81.0 Age-related osteoporosis without current pathological fracture; D63.8 Anemia in other chronic diseases classified elsewhere; Z90.49 Acquired absence of other specified parts of digestive tract; Z98.51 Tubal ligation status; Z87.891 Personal history of nicotine dependence; Z98.890 Other specified postprocedural states; Z79.51 Long term (current) use of inhaled steroids; Z79.899 Other long term (current) drug therapy
CPT/HCPCS: 36415; 36600; 71045; 80048; 80053; 80069; 82607; 82746; 82803; 82947; 83735; 83880; 84100; 84145; 85025; 93005; 93010; 94640; 94660; 94761; 94762; 96374; 97110; 97162; 99285-25; A9270; J1650; J2919; J7030; J7060; J7120; J7512

== ENCOUNTER 2024-03-08 10:21 | Inpatient (IN) | payer OTHER ==
[~2024-03-08] VITALS: Ht 149.9 cm; Wt 36.7 kg
[~2024-03-08 10:21] MED LIST changes: +AIRDUO RESPICL1 EAC4 INH; +AMOX-CLAV 500-1 EAC5 PO; +Hair, Skin & N1 EACH PO; +IPRAT-ALBUT 0.5-3 ML INH; +PANT20 PO; +Pyridium100 MG PO; +VISBIOME 112.51 EACH PO
[2024-03-08] MEDS ORDERED: Ipratropium Bromide INH 0.02% 0.5 mg/2.5ML Vial INH SCH (10:30)
[2024-03-08] MEDS ORDERED: Albuterol 2.5 MG/3 ML VIAL INH SCH (10:30)
[2024-03-08 10:52] LABS: Hematocrit 38.9 % (33.0-51.0); Hemoglobin 11.5 g/dL (11.5-16.0); Mean Corpuscular HGB 30.6 pg (26.0-34.0); Mean Corpuscular HGB Conc 29.6 g/dL (31.5-36.5); Mean Corpuscular Volume 104 fL (80-100); Mean Platelet Volume 11.8 fL (9.1-12.4); NRBC ABSOLUTE 0.06 K/mm3 (0.00-0.02); NRBC Auto 0.5 /100 WBC (0.0-0.2); Platelet Count 232 K/mm3 (150-400); RDW Coefficient Variation 14.6 % (11.7-14.2); RDW Standard Deviation 55.8 fL (35.1-46.3); Red Blood Cell Count 3.76 M/mm3 (3.80-5.20); White Blood Cell Count 12.79 K/mm3 (4.00-11.30)
[2024-03-08] MEDS ORDERED: CefTRIAXone Sodium 1,000 MG in NS 50 ML IV ONE (10:55)
[2024-03-08] MEDS ORDERED: Doxycycline Hyclate 100 MG TAB PO ONE (10:55)
[2024-03-08] MEDS ORDERED: MethylPREDNISolone Sod Succ 125 MG Vial IV ONE (10:55)
[2024-03-08] MEDS ORDERED: NS 1,000 ML IV SCH ×2 (10:55→12:15)
[2024-03-08 11:12] LABS: Albumin, Blood 2.5 g/dL (3.4-5.0); Albumin/Globulin Ratio 0.5 (0.8-1.8); Bilirubin, Total 0.4 mg/dL (0.1-1.0); Bun/Creatinine Ratio 63.5 (12.0-20.0); Creatinine, Blood 0.83 mg/dL (0.40-1.00); Globulin, Blood 4.7 g/dL (2.2-4.0); Potassium, Blood 4.9 mmol/L (3.5-5.5); Total Protein, Blood 7.2 g/dL (6.4-8.2)
[2024-03-08 11:17] LABS: PCO2 Venous 90.9 mmHg (38-42); pH Blood Venous 7.24 (7.34-7.37)
[2024-03-08 11:18] LABS: Base Excess Venous 11.4 mmol/L
[2024-03-08 11:34] LABS: BAND PERCENT MAN 18 % (0-8); BASOPHILS PERCENT MAN 0 % (0-2); EOSINOPHILS PERCENT MAN 0 % (0-6); LYMPHOCYTES ABSOLUTE MAN 0.38 K/mm3 (0.84-5.20); LYMPHOCYTES PERCENT MAN 3 % (21-46); METAMYELOCYTE ABSOLUTE MAN 0.25 K/mm3 (0.00-0.00); METAMYELOCYTE PERCENT MAN 2 % (0-0); MONOCYTES ABSOLUTE MAN 0.51 K/mm3 (0.16-1.47); MONOCYTES PERCENT MAN 4 % (4-13); NEUTROPHILS ABSOLUTE MAN 11.63 K/mm3 (1.96-9.15); SEG NEUTROPHILS PERCENT MAN 73 % (41-73); TOTAL CELLS COUNTED 100
[2024-03-08] MEDS ORDERED: Ipratropium/Albuterol SulF 2.5-0.5MG/3 ML Amp INH PRN (12:10)
[2024-03-08] MEDS ORDERED: FLU VACC TS2024-25(6MOS UP)/PF 45 MCG/0.5 ML SYRINGE IM SCH (12:15)
[2024-03-08] MEDS ORDERED: Albuterol 2.5 MG/3 ML VIAL INH PRN (12:15)
[2024-03-08] MEDS ORDERED: Doxycycline Hyclate 100 MG in Dextrose 5% 250 ML IV SCH (13:00)
[2024-03-08] MEDS ORDERED: LORazepam 2 MG/ML 1ML Injection IV ONE ×2 (13:55→20:50)
[2024-03-08] MEDS ORDERED: MethylPREDNISolone Sod Succ 125 MG Vial IV SCH (18:00)
[2024-03-08] MEDS ORDERED: LORazepam 2 MG/ML 1ML Injection ONE (20:41)
[2024-03-08] MEDS ORDERED: Lactobacil 2-S.Thermo-Bifido 1 1 Cap PO SCH (21:00)
[2024-03-09] MEDS ORDERED: LORazepam 2 MG/ML 1ML Injection IV ONE (04:40)
[2024-03-09 05:47] LABS: Hematocrit 34.3 % (33.0-51.0); Hemoglobin 10.2 g/dL (11.5-16.0); Mean Corpuscular HGB 30.7 pg (26.0-34.0); Mean Corpuscular HGB Conc 29.7 g/dL (31.5-36.5); Mean Corpuscular Volume 103 fL (80-100); Mean Platelet Volume 11.6 fL (9.1-12.4); NRBC ABSOLUTE 0.05 K/mm3 (0.00-0.02); NRBC Auto 0.4 /100 WBC (0.0-0.2); Platelet Count 211 K/mm3 (150-400); RDW Coefficient Variation 14.8 % (11.7-14.2); Red Blood Cell Count 3.32 M/mm3 (3.80-5.20); White Blood Cell Count 12.25 K/mm3 (4.00-11.30)
[2024-03-09 06:16] LABS: Albumin/Globulin Ratio 0.4 (0.8-1.8); Bilirubin, Total 0.4 mg/dL (0.1-1.0); Bun/Creatinine Ratio 66.3 (12.0-20.0); Calcium, Blood 9.3 mg/dL (8.5-10.1); Creatinine, Blood 0.48 mg/dL (0.40-1.00); Globulin, Blood 4.5 g/dL (2.2-4.0); Potassium, Blood 4.3 mmol/L (3.5-5.5); Total Protein, Blood 6.5 g/dL (6.4-8.2)
[2024-03-09 06:22] VITALS: BP 102/64
[2024-03-09 06:23] LABS: BAND PERCENT MAN 21 % (0-8); BASOPHILS PERCENT MAN 0 % (0-2); EOSINOPHILS PERCENT MAN 0 % (0-6); LYMPHOCYTES ABSOLUTE MAN 0.24 K/mm3 (0.84-5.20); LYMPHOCYTES PERCENT MAN 2 % (21-46); MONOCYTES ABSOLUTE MAN 0.24 K/mm3 (0.16-1.47); MONOCYTES PERCENT MAN 2 % (4-13); NEUTROPHILS ABSOLUTE MAN 11.76 K/mm3 (1.96-9.15); SEG NEUTROPHILS PERCENT MAN 75 % (41-73); TOTAL CELLS COUNTED 100
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
[2024-03-09 07:46] VITALS: BP 99/53
[2024-03-09] MEDS ORDERED: Enoxaparin 40 MG/0.4 ML SYR SC SCH (09:00)
[2024-03-09 11:41] VITALS: BP 97/60
[2024-03-09] MEDS ORDERED: Ampicillin Sod/Sulbactam Sod 3 GM in NS 100 ML IV SCH (12:00)
[2024-03-09] MEDS ORDERED: CefTRIAXone Sodium 1,000 MG in NS 100 ML IV SCH (12:00)
[2024-03-09] MEDS ORDERED: Naloxone HCl 0.4MG / ML 1ML Vial IV PRN (15:25)
[2024-03-09] MEDS ORDERED: Ketorolac Tromethamine 15mg Vial IV PRN (15:25)
[2024-03-09] MEDS ORDERED: FentaNYL Citrate 50 MCG/ML 2 ML Injection IV PRN (15:25)
[2024-03-09] MEDS ORDERED: Acetaminophen 325 MG Supp PR PRN (15:30)
[2024-03-09 16:09] VITALS: BP 99/58
--- NOTE | 2024-03-09 17:53 | NUR ---
SHIFT SUMMARY PT REMAINS RESPONSIVE TO PAIN. PT HAS BEEN OFF OF BIPAP FOR THE LAST COUPLE OF HOURS ON 4L NC. PT REPOSITIONED Q2H. PT NOW WAKING UP WHEN SHE NEEDS TO URINATE, BUT HEAVY TWO PERSON ASSIST TO COMMODE SHE IS NOT FOLLOWING DIRECTIONS. FAMILY AT BEDSIDE THIS AFTERNOON. WILL REPORT OFF TO ONCOMING DYLON
[2024-03-09 20:29] VITALS: BP 94/47
[2024-03-09 23:34] LABS: Bicarbonate Venous 39.8 mmol/L (24.0-30.0); PCO2 Venous 58.3 mmHg (38-42); pH Blood Venous 7.46 (7.34-7.37)
[2024-03-10 00:46] VITALS: BP 103/73
[2024-03-10 04:03] LABS: Hematocrit 34.4 % (33.0-51.0); Hemoglobin 9.9 g/dL (11.5-16.0); Mean Corpuscular HGB 29.8 pg (26.0-34.0); Mean Corpuscular HGB Conc 28.8 g/dL (31.5-36.5); Mean Corpuscular Volume 104 fL (80-100); Mean Platelet Volume 11.5 fL (9.1-12.4); NRBC ABSOLUTE 0.04 K/mm3 (0.00-0.02); NRBC Auto 0.4 /100 WBC (0.0-0.2); Platelet Count 219 K/mm3 (150-400); RDW Coefficient Variation 15.4 % (11.7-14.2); RDW Standard Deviation 59.2 fL (35.1-46.3); Red Blood Cell Count 3.32 M/mm3 (3.80-5.20); White Blood Cell Count 9.02 K/mm3 (4.00-11.30)
[2024-03-10 04:11] VITALS: BP 103/69
[2024-03-10 04:25] LABS: Albumin, Blood 1.9 g/dL (3.4-5.0); Albumin/Globulin Ratio 0.5 (0.8-1.8); Bilirubin, Total 0.3 mg/dL (0.1-1.0); Bun/Creatinine Ratio 43.9 (12.0-20.0); Calcium, Blood 9.5 mg/dL (8.5-10.1); Creatinine, Blood 0.48 mg/dL (0.40-1.00); Globulin, Blood 4.1 g/dL (2.2-4.0); Potassium, Blood 4.6 mmol/L (3.5-5.5)
[2024-03-10 04:28] LABS: BAND PERCENT MAN 11 % (0-8); BASOPHILS PERCENT MAN 0 % (0-2); EOSINOPHILS PERCENT MAN 0 % (0-6); LYMPHOCYTES ABSOLUTE MAN 0.45 K/mm3 (0.84-5.20); LYMPHOCYTES PERCENT MAN 5 % (21-46); MONOCYTES ABSOLUTE MAN 0.27 K/mm3 (0.16-1.47); MONOCYTES PERCENT MAN 3 % (4-13); MYELOCYTE ABSOLUTE MAN 0.09 K/mm3 (0.00-0.00); MYELOCYTE PERCENT MAN 1 % (0-0); SEG NEUTROPHILS PERCENT MAN 80 % (41-73); TOTAL CELLS COUNTED 100
--- NOTE | 2024-03-10 06:33 | NUR ---
PT RESTLESS THROUGHOUT THE SHIFT WITH INTERMITTENT COMPLIANCE WITH BIPAP. PT HAS BEEN ON 4-6L O2 NC WHEN NOT ON BIPAP. PT DID PULL AN IV AND THAT WAS REPLACED W/O PROBLEM. PT DID TRANSFER 2 [place] [facility] [place]IN[place] WELL. PT MENTATION IS LABILE AOX0-1. PT PULLS OFF TELEMETRY AND OXIMETRY. IV HAS BEEN WRAPPED AND HAS REMAINED IN PLACE SINCE BEING REPLACED. PT DOES HAVE CONFUSION WITH REPEATED QUESTIONING WELL INCOMPREHENSIBLE SPEECH AT TIMES. SPEECH HAS IMPROVED THIS AM BUT STILL REMAINS CONFUSED. PT REQUESTING FOOD AND DRINK. PT IS NPO STATUS BUT HAS BEEN GIVEN SIPS OF WATER WHICH SHE TOLERATED WELL.
[2024-03-10 07:41] VITALS: BP 97/60
--- NOTE | 2024-03-10 08:30 | NUR ---
UPDATE PT AWAKE AND ALERT THIS AM. PT PULLING OFF HER BIPAP AND REFUSING TO WEAR IT. PT ABLE TO STATE HER NAME, , PLACE AND NAME FAMILY MEMBERS. PT PLACED ON 5L NC TO MAINTAIN SATS OF 88%. RR IN THE 20-30'S AND BREATHING IS LABORED. DISCUSSION WITH PATIENT ABOUT RISKS OF NOT WEARING THE BIPAP. PT VERBALIZES UNDERSTANDING. PT STATES "I JUST WANT TO GO HOME". THIS RN ASKED IF SHE COULD CALL FAMILY IN. PT STATES YES. ATTMEPTED TO CALL DAUGHTER CAITLYN REQUESTED BY PATIENT AND DID NOT RECEIVE ANSWER. SPOKE WITH GRANDDAUGHTER CHELSEA AND SHE WILL COME IN TO SEE PATIENT ALONG WITH CAITLYN. PALLIATIVE CARE CALLED TO VISIT PATIENT.
[2024-03-10] MEDS ORDERED: LORazepam 2 MG/ML 1ML Injection IV ONE ×2 (08:40→12:30)
[2024-03-10 12:00] LABS: Base Excess Venous 19.5 mmol/L; Bicarbonate Venous 39.2 mmol/L (24.0-30.0); PCO2 Venous 83.8 mmHg (38-42); pH Blood Venous 7.34 (7.34-7.37)
[2024-03-10] MEDS ORDERED: LORazepam 1 MG Tab PO ONE (12:40)
[2024-03-10 13:16] VITALS: BP 113/74
[2024-03-10] MEDS ORDERED: Atropine Sulfate 1% Opth Soln 2ML BTL SL PRN (14:20)
[2024-03-10] MEDS ORDERED: LORazepam 1 MG Tab PO PRN (14:20)
[2024-03-10] MEDS ORDERED: Morphine Sulfate 20 MG/1ML 1 ML Oral Syringe SL PRN (14:25)
[2024-03-10] MEDS ORDERED: Bisacodyl 10 MG Supp PR PRN (14:25)
[2024-03-10] MEDS ORDERED: Acetaminophen 650 MG Supp PR PRN (14:25)
[2024-03-10] MEDS ORDERED: Scopolamine Hydrobromide Patch TOP PRN (14:25)
[2024-03-10] MEDS ORDERED: Promethazine HCl 25 MG Supp PR PRN (14:25)
--- NOTE | 2024-03-10 14:58 | NUR ---
GOALS OF CARE CONVERSATIONS RESULT IN CHANGE TO COMFORT CARE. CELESTINO IS NOT TOLERATING THE BIPAP MASK. SHE IS ANXIOUSLY READJUSTING THE MASK, WIGGLING IN BED, STRAIGHT ARMING WHILE PINCHING HER SHOULDERS TOGETHER. WITH PT'S HSBD, FLETCHER AT BEDSIDE, PT ELECTS TO TRANSITION TO COMFORT CARE. FLETCHER IS VERY EMOTIONAL WHEN STATING, "SHE DESERVES BETTER. SHE'S GOING TO A BETTER PLACE. I LOVE HER." PHONE CALL TO PROVIDER FOR COMFORT CARE ORDERS. PRIMARY RN UPDATED.
--- NOTE | 2024-03-10 14:59 | NUR ---
Spiritual care visit conducted. Patient is lying in bed and has family and some staff present in the room. I kneel and talk with patient about medical decisions to be made, her jose antonio and her concerns. She responds selectively but does allow for me to say a prayer for her. I talk with family sparing because of the size of the crowd in the room but I will continue to remain available to the patient and family.
--- NOTE | 2024-03-10 18:05 | NUR ---
SHIFT SUMMARY PT TRANSITIONED TO COMFORT CARE THIS SHIFT, SEE PALLIATIVE CARE NOTE. MULTIPLE FAMILY MEMBERS AT BEDSIDE THIS EVENING. PT REMAINS ON 4L NC. BIPAP IN ROOM FOR COMFORT IF NEEDED. PT REPOSITIONED Q2H. PT NOW INCONTINENT OF URINE. WILL CONTINUE TO PROVIDE COMFORT MEASURES AND REPORT ONCOMING RN
--- NOTE | 2024-03-10 21:54 | NUR ---
PT HAS INCREASED WORK OF BREATHING AND RESPIRATORY RATE. PT MEDICATED WITH 5MG PO MORPHINE FOR AIR HUNGER. FAMILY AT BEDSIDE. FAMILY EDUCATED ON WHY MEDICATION WAS GIVEN. FAMILY VERBALIZES UNDERSTANDING OF EDUCATION. PT REMAINS IN BED WITH NO OTHER PRESENTATIONS OF DISTRESS.
--- NOTE | 2024-03-10 22:40 | NUR ---
PT ARIVED ON UNTI AT 2220 AND FAMILY/PT ORIENTED TO THE ROOM. PT CONTINENET TO THE BR.
--- NOTE | 2024-03-10 22:41 | NUR ---
REPORT CALLED TO DYLON CHAUDHRY. FAMILY INFORMED OF TRANSFER, ALL BELONGINGS WITH PT AT TIME OF TRANSFER. PT TRANSPORTED BY BED TO ROOM 364.
--- NOTE | 2024-03-11 05:46 | NUR ---
SHIFT SUMMARY PT A&O TO SELF AND IS PLEASANTLY CONFUSED. PT ON COMFORT CARE, FAMILY IN ROOM. PT CONTINENT DURING SHIFT TO BS. PT MEDICATED PRN AND SCHEDULED PER EMAR. PT SPENT MOST OF SHIFT IN BED WITH EYES CLOSED AND RESPIRATIONS EVEN AND UNLABORED. NO ACUTE EVENTS AT THIS TIME. PT REPOSITIONED Q2HRS. PT LEFT IN A POSITION OF SAFETY WITH FALL PRECAUTIONS IN PLACE AND CALL LIGHT IN REACH.
[2024-03-11] MEDS ORDERED: ALBU90OI INH (18:24)
--- NOTE | 2024-03-11 18:53 | NUR ---
SHIFT SUMMARY PATIENT ON COMFORT CARE. PATIENT AROUSES EASILY AND OFTEN HAS EYES CLOSED BUT ABLE TO ANSWER QUESTIONS. PATIENT AMBULATING TO THE BATHROOM WITH FAMILY ASSISTANCE. PATIENT MEDICATED WITH ROXANOL X1. ATTEMPTED TO EDUCATE PATIENT AND FAMILY RELATED TO AIR HUNGER AND ANXIETY. EGG CRATE PLACED ON BED TO HELP WITH COMFORT. FAMILY IN AND OUT. PALLIATIVE CARE INVOLVED WITH CARE.
--- NOTE | 2024-03-12 06:03 | NUR ---
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
[2024-03-12] MEDS ORDERED: Acetaminophen 325 MG TABLET PO PRN (12:00)
--- NOTE | 2024-03-12 14:16 | NUR ---
Patient is lying in bed and alert. Patient has several family members present in the room. She states that she is holding up ok and welcomes prayer which I gladly provide. Patient and family voice their appreciation. I allow the family to return to their visiting.
[2024-03-12] MEDS ORDERED: Citalopram Hydrobromide 20 MG Tab PO SCH (18:00)
--- NOTE | 2024-03-12 18:00 | NUR ---
SHIFT SUMMARY PATIENT CONTINUES ON COMFORT CARE. PATIENT ANXIOUS AND PARANOID AT TIMES. PATIENT INSECURE ABOUT TAKING MEDICATIONS. FAMILY AT BEDSIDE THROUGHOUT THE DAY. PALLIATIVE CARE WORKING WITH FAMILY. PATIENT UP TO COMMODE WITH MINIMAL ASSISTANCE BUT EASILY SOB WITH ANY ACTIVITY. PATIENT VERY VERBAL ABOUT NOT WEARING CPAP OR BIPAP FOR ANY REASON. MEPILEX DRESSING APPLIED TO AREA OF REDNESS ON SPINE. PATIENT EVEN PARANOID ABOUT PATCH BEING PLACED.
--- NOTE | 2024-03-13 04:42 | NUR ---
SHIFT SUMMARY: CELESTINO IS A&OX4. NO ACUTE EVENTS OVERNIGHT. SHE HAS HAD MULTIPLE FAMILY MEMBERS AT THE BEDSIDE THIS SHIFT. SHE REQUESTED ONE DOSE OF TYLENOL AND ONE BREATHING TREATMENT. SHE REPORTS POOR APPETITE BUT STATES SHE IS TOLERATING PO INTAKE WELL. FAMILY HAS BEEN ASSISTING PT TO THE BSC. PT BECOMES DYSPNEIC ON EXERTION. SHE IS LYING IN BED WITH HER EYES CLOSED, RESPIRATIONS EVEN AND UNLABORED. CALL LIGHT IN REACH AND BED IN LOWEST POSITION. WILL GIVE REPORT TO DAY SHIFT RN.
[2024-03-13] MEDS ORDERED: CefTRIAXone Sodium 2,000 MG in NS 100 ML IV SCH (16:00)
[2024-03-13] MEDS ORDERED: Enoxaparin 30 MG/0.3 ML SYR SC SCH (16:00)
--- NOTE | 2024-03-13 16:09 | NUR ---
Spiritual care visit conducted. I met with the patient's dtr in the hallway and she is tearful as she tells me about her mother thinking about changing her code status and that she feels like she is prolonging her own suffering and believes that it fear of and dying that causes her to go through these cicles of coming on and off of comfort care. I provided therapeutic listening and gentle health counselor. She showed signs of being comforted by our conversation.
[2024-03-13 16:36] VITALS: BP 113/63
[2024-03-13 16:52] LABS: Hematocrit 35.1 % (33.0-51.0); Hemoglobin 10.8 g/dL (11.5-16.0); Mean Corpuscular HGB 30.5 pg (26.0-34.0); Mean Corpuscular HGB Conc 30.8 g/dL (31.5-36.5); Mean Corpuscular Volume 99 fL (80-100); Mean Platelet Volume 11.6 fL (9.1-12.4); Platelet Count 262 K/mm3 (150-400); RDW Coefficient Variation 14.9 % (11.7-14.2); RDW Standard Deviation 54.7 fL (35.1-46.3); Red Blood Cell Count 3.54 M/mm3 (3.80-5.20); White Blood Cell Count 18.01 K/mm3 (4.00-11.30)
[2024-03-13 17:13] LABS: Albumin, Blood 1.9 g/dL (3.4-5.0); Albumin/Globulin Ratio 0.5 (0.8-1.8); Bilirubin, Total 0.4 mg/dL (0.1-1.0); Bun/Creatinine Ratio 27.3 (12.0-20.0); Calcium, Blood 8.3 mg/dL (8.5-10.1); Creatinine, Blood 0.4 mg/dL (0.40-1.00); Globulin, Blood 3.8 g/dL (2.2-4.0); Potassium, Blood 3.5 mmol/L (3.5-5.5); Total Protein, Blood 5.7 g/dL (6.4-8.2)
--- NOTE | 2024-03-13 17:34 | NUR ---
SHIFT SUMMARY: PATIENT IS A&Ox4/1 PERSON ASSIST; CALLS APPROPRIATELY AND MAKES NEEDS KNOWN. SHE EXPRESSED TO FAMILY AND STAFF TODAY SOME CONFUSION ON WHY SHE WASN'T BEING TREATED AND WHY SHE WAS IN THE HOSPITAL. SHE EXPRESSED THAT SHE DOES NOT WISH TO BE ON COMFORT CARE; SHE WANTS TO LIVE AND WOULD LIKE TO BE TREATED. DR. KAY NOTIFIED AND ORDERS PLACED TO BEGIN TREATMENT ON THE PATIENT. SHE IS USING NASAL CANNULA OXYGEN AND HOME BIPAP SET UP AT 5 LITERS TO MAINTAIN OXYGEN SATURATION OF 88% OR HIGHER. SHE IS IN BED, CALL LIGHT WITHIN REACH, BED ALARM SET, NO SIGNS OR SYMPTOMS OF DITRESS, FAMILAY AT BEDSIDE, PLAN OF CARE ONGOING.
[2024-03-13] MEDS ORDERED: Ipratropium/Albuterol SulF 2.5-0.5MG/3 ML Amp INH SCH (18:25)
[2024-03-13 19:53] VITALS: BP 100/48
[2024-03-13 19:55] VITALS: BP 101/48
[2024-03-13] MEDS ORDERED: MethylPREDNISolone Sod Succ 125 MG Vial IV SCH (21:00)
[2024-03-14 05:06] VITALS: BP 92/49
--- NOTE | 2024-03-14 06:24 | NUR ---
Shift Summary Pt compliant with her Bi-Pap tonight, she wore it t/o the night with 5L bleed in. No desaturations after initial placement. She did c/o of full body pain/discomfort at the start of the shift which was well managed through PRN Tylenol per EMAR. Pt's family is in the room including her daughter who helps her to the BSC and back. Continent voids, AOx4, 1 assist to BSC.
[2024-03-14 06:59] VITALS: BP 118/69
[2024-03-14 10:00] LABS: BASOPHILS ABSOLUTE AUTO 0.02 K/mm3 (0.00-0.23); BASOPHILS PERCENT AUTO 0 % (0-2); EOSINOPHILS PERCENT AUTO 0 % (0-6); Hematocrit 33.8 % (33.0-51.0); Hemoglobin 10.6 g/dL (11.5-16.0); IMMATURE GRAN ABSOLUTE AUTO 0.27 K/mm3 (0.00-0.10); IMMATURE GRAN PERCENT AUTO 2 % (0-1); LYMPHOCYTES PERCENT AUTO 4 % (21-46); MONOCYTES ABSOLUTE AUTO 0.23 K/mm3 (0.16-1.47); MONOCYTES PERCENT AUTO 2 % (4-13); Mean Corpuscular HGB 30.7 pg (26.0-34.0); Mean Corpuscular HGB Conc 31.4 g/dL (31.5-36.5); Mean Corpuscular Volume 98 fL (80-100); Mean Platelet Volume 11.8 fL (9.1-12.4); NEUTROPHILS ABSOLUTE AUTO 11.83 K/mm3 (1.96-9.15); NEUTROPHILS PERCENT AUTO 92 % (41-73); Platelet Count 294 K/mm3 (150-400); RDW Coefficient Variation 15.2 % (11.7-14.2); RDW Standard Deviation 54.3 fL (35.1-46.3); Red Blood Cell Count 3.45 M/mm3 (3.80-5.20); White Blood Cell Count 12.85 K/mm3 (4.00-11.30)
[2024-03-14 10:27] LABS: Bun/Creatinine Ratio 24.1 (12.0-20.0); Calcium, Blood 8.3 mg/dL (8.5-10.1); Creatinine, Blood 0.42 mg/dL (0.40-1.00); Potassium, Blood 3.5 mmol/L (3.5-5.5)
[2024-03-14 15:32] VITALS: BP 112/64
[2024-03-14] MEDS ORDERED: NS 250 ML IV PRN (15:50)
--- NOTE | 2024-03-14 17:36 | NUR ---
SHIFT SUMMARY PT A&OX4, COOPERATIVE, ABLE TO MAKE NEEDS KNOWN. SPEND MOST OF THE MORNING SLEEPING AND HAS NOT COMPLETELY WAKEN UP YET. DAUGHTER REPORTS "ITS JUST HER SCHEDULE". USES COMMODE APPROPRAITELY. TOLERATING PO AND IV MEDS. BED IN LOWEST POSITION, CALL LIGHT WITHIN REACH.
[2024-03-14 20:09] VITALS: BP 94/54
[2024-03-14 22:24] VITALS: BP 94/54
[2024-03-15 04:33] VITALS: BP 109/61
--- NOTE | 2024-03-15 06:12 | NUR ---
Shift Summary No acute changes. Daughter at the bedside assisting pt to the BSC. No c/o of pain or discomfort. No desaturation events.
[2024-03-15 07:02] VITALS: BP 105/64
[2024-03-15 07:02] LABS: BASOPHILS ABSOLUTE AUTO 0.01 K/mm3 (0.00-0.23); BASOPHILS PERCENT AUTO 0 % (0-2); EOSINOPHILS PERCENT AUTO 0 % (0-6); Hematocrit 33.5 % (33.0-51.0); Hemoglobin 10.4 g/dL (11.5-16.0); IMMATURE GRAN ABSOLUTE AUTO 0.14 K/mm3 (0.00-0.10); IMMATURE GRAN PERCENT AUTO 2 % (0-1); LYMPHOCYTES ABSOLUTE AUTO 0.65 K/mm3 (0.84-5.20); LYMPHOCYTES PERCENT AUTO 7 % (21-46); MONOCYTES ABSOLUTE AUTO 0.27 K/mm3 (0.16-1.47); MONOCYTES PERCENT AUTO 3 % (4-13); Mean Corpuscular HGB 30.7 pg (26.0-34.0); Mean Corpuscular Volume 99 fL (80-100); Mean Platelet Volume 10.9 fL (9.1-12.4); NEUTROPHILS ABSOLUTE AUTO 8.11 K/mm3 (1.96-9.15); NEUTROPHILS PERCENT AUTO 88 % (41-73); Platelet Count 390 K/mm3 (150-400); RDW Coefficient Variation 15.2 % (11.7-14.2); RDW Standard Deviation 55.5 fL (35.1-46.3); Red Blood Cell Count 3.39 M/mm3 (3.80-5.20); White Blood Cell Count 9.18 K/mm3 (4.00-11.30)
[2024-03-15 07:19] LABS: Albumin, Blood 1.8 g/dL (3.4-5.0); Albumin/Globulin Ratio 0.4 (0.8-1.8); Bilirubin, Total 0.3 mg/dL (0.1-1.0); Bun/Creatinine Ratio 44.2 (12.0-20.0); Calcium, Blood 8.9 mg/dL (8.5-10.1); Creatinine, Blood 0.41 mg/dL (0.40-1.00); Potassium, Blood 3.8 mmol/L (3.5-5.5); Total Protein, Blood 5.8 g/dL (6.4-8.2)
[2024-03-15] MEDS ORDERED: Mometasone/Formoterol MDI 200/5 mcg 13 GM INH SCH (09:40)
[2024-03-15 16:11] VITALS: BP 97/57
--- NOTE | 2024-03-15 16:51 | NUR ---
SHIFT SUMMARY PT A&OX4, COOPERATIVE, ABLE TO MAKE NEEDS KNOWN. PT RARELY GETS OUT BED DURING THE DAY, ONLY TO USE COMMODE. FAMILY AND THIS RN HAD CONVERSTAION ABOUT TAKING A SHOWER, AND HWO RN NEEDS TO BE PRESENT TO ASSESS LEVEL OF ADLS REQUIRED. CURRENTLY ON 6L HIGH FLOW NASAL CANNULA. BED ALARM ON, BED IN LOWEST POSITION, CALL LIGHT WITHIN REACH.
[2024-03-15 20:23] VITALS: BP 127/64
[2024-03-16 04:11] VITALS: BP 108/63
[2024-03-16 04:55] LABS: BASOPHILS ABSOLUTE AUTO 0.01 K/mm3 (0.00-0.23); BASOPHILS PERCENT AUTO 0 % (0-2); EOSINOPHILS PERCENT AUTO 0 % (0-6); Hematocrit 32.5 % (33.0-51.0); Hemoglobin 10.2 g/dL (11.5-16.0); IMMATURE GRAN PERCENT AUTO 1 % (0-1); LYMPHOCYTES ABSOLUTE AUTO 0.56 K/mm3 (0.84-5.20); LYMPHOCYTES PERCENT AUTO 6 % (21-46); MONOCYTES ABSOLUTE AUTO 0.31 K/mm3 (0.16-1.47); MONOCYTES PERCENT AUTO 4 % (4-13); Mean Corpuscular HGB 31.2 pg (26.0-34.0); Mean Corpuscular HGB Conc 31.4 g/dL (31.5-36.5); Mean Corpuscular Volume 99 fL (80-100); Mean Platelet Volume 11.1 fL (9.1-12.4); NEUTROPHILS PERCENT AUTO 89 % (41-73); Platelet Count 425 K/mm3 (150-400); RDW Coefficient Variation 15.1 % (11.7-14.2); RDW Standard Deviation 55.1 fL (35.1-46.3); Red Blood Cell Count 3.27 M/mm3 (3.80-5.20); White Blood Cell Count 8.98 K/mm3 (4.00-11.30)
--- NOTE | 2024-03-16 05:24 | NUR ---
SHIFT SUMMARY PT WITH VISITORS THROUGH SHIFT. 1 ASSIST TO BEDSIDE COMMODE. ATTEMPTED TO USE PT'S BIPAP X2, BUT PT DID NOT TOLERATE, AND SWITCHED BACK TO 6L NC. SATS REMAINED >90%. SLEPT LONG INTERVALS THROUGH NIGHT. CALL LIGHT WITHIN REACH. SIDE RAILS UP X2.
[2024-03-16 05:35] LABS: Albumin, Blood 1.9 g/dL (3.4-5.0); Albumin/Globulin Ratio 0.5 (0.8-1.8); Bilirubin, Total 0.2 mg/dL (0.1-1.0); Bun/Creatinine Ratio 44.3 (12.0-20.0); Calcium, Blood 8.5 mg/dL (8.5-10.1); Creatinine, Blood 0.43 mg/dL (0.40-1.00); Globulin, Blood 3.8 g/dL (2.2-4.0); Potassium, Blood 3.5 mmol/L (3.5-5.5); Total Protein, Blood 5.7 g/dL (6.4-8.2)
[2024-03-16 07:38] VITALS: BP 105/54
[2024-03-16] MEDS ORDERED: Nystatin 100,000 Unit/ML Susp 5 ML UDC MT SCH (13:00)
--- NOTE | 2024-03-16 15:01 | NUR ---
SHIFT SUMMARY PATIENT IN ROOM THIS SHIFT. ABLE TO USE BSC WITH FAMILY ASSISTANCE. NO C/O PAIN THIS SHIFT EXCEPT FOR IV SITE TENDERNESS, THIS SITE WAS ROTATED. TITRATED BACK TO 5 LITERS. DECLINING TO WEAR BIPAP. NYSTATIN STARTED THIS SHIFT, TOLERATING WELL. CALL LIGHT IN REACH, ABLE TO MAKE NEEDS KNOWN. CARES ONGOING.
[2024-03-16 15:44] VITALS: BP 106/58
[2024-03-16 19:43] VITALS: BP 116/61
[2024-03-17 03:02] VITALS: BP 115/63
[2024-03-17 05:06] LABS: BASOPHILS ABSOLUTE AUTO 0.01 K/mm3 (0.00-0.23); BASOPHILS PERCENT AUTO 0 % (0-2); EOSINOPHILS PERCENT AUTO 0 % (0-6); Hematocrit 31.7 % (33.0-51.0); Hemoglobin 9.7 g/dL (11.5-16.0); IMMATURE GRAN ABSOLUTE AUTO 0.06 K/mm3 (0.00-0.10); IMMATURE GRAN PERCENT AUTO 1 % (0-1); LYMPHOCYTES ABSOLUTE AUTO 0.24 K/mm3 (0.84-5.20); LYMPHOCYTES PERCENT AUTO 4 % (21-46); MONOCYTES ABSOLUTE AUTO 0.19 K/mm3 (0.16-1.47); MONOCYTES PERCENT AUTO 3 % (4-13); Mean Corpuscular HGB 30.5 pg (26.0-34.0); Mean Corpuscular HGB Conc 30.6 g/dL (31.5-36.5); Mean Corpuscular Volume 100 fL (80-100); Mean Platelet Volume 11.4 fL (9.1-12.4); NEUTROPHILS ABSOLUTE AUTO 6.06 K/mm3 (1.96-9.15); NEUTROPHILS PERCENT AUTO 92 % (41-73); Platelet Count 430 K/mm3 (150-400); RDW Coefficient Variation 14.7 % (11.7-14.2); RDW Standard Deviation 54.6 fL (35.1-46.3); Red Blood Cell Count 3.18 M/mm3 (3.80-5.20); White Blood Cell Count 6.56 K/mm3 (4.00-11.30)
--- NOTE | 2024-03-17 05:17 | NUR ---
SHIFT SUMMARY PT SLEPT ON/OFF THROUGH THE NIGHT. MULTIPLE VISITORS DURING THE EVENING. DAUGHTER AT BEDSIDE OVERNIGHT. PT DECLINED USING BIPAP OVER NIGHT. 5L NC USED WITH SATS >90%. DENIES PAIN. SIDE RAILS UP X2, CALL LIGHT WITHIN REACH.
[2024-03-17 05:29] LABS: Albumin, Blood 1.9 g/dL (3.4-5.0); Albumin/Globulin Ratio 0.5 (0.8-1.8); Bilirubin, Total 0.3 mg/dL (0.1-1.0); Bun/Creatinine Ratio 54.4 (12.0-20.0); Calcium, Blood 8.5 mg/dL (8.5-10.1); Creatinine, Blood 0.35 mg/dL (0.40-1.00); Globulin, Blood 3.8 g/dL (2.2-4.0); Potassium, Blood 4.1 mmol/L (3.5-5.5); Total Protein, Blood 5.7 g/dL (6.4-8.2)
[2024-03-17 07:33] VITALS: BP 98/52
[2024-03-17 16:46] VITALS: BP 122/98
--- NOTE | 2024-03-17 17:23 | NUR ---
SHIFT SUMMARY PT RESTING QUIETLY AT START OF SHIFT. WOKE EASILY FOR REPORT. PT IS WEAK AND SOB WITH EXERTION. PT ON 5L HF MASK AT START OF SHIFT. O2 DECREASED TO 3L WITH BIOX AT 93-94% AND LATER TITRATED DOWN TO 2L VIA N/C WITH BIOX STAYING AT 92-93%. PT LATER PUT ON BIPAP WITHOUT O2 AND DESATED TO 88% ON RA, PT NOT REALIZING O2 WAS OFF. PT TOOK OFF BIPAP AND PLACED N/C BACK ON AT 3L O2. PT'S DAUGHTER IN RM ALL NIGHT AND MOST OF DAY. NEW IV SITE PLACED AGAIN TO [facility]. DR URENA HERE THIS AM AND AGAIN LATER THIS AFTERNOON. PT ABLE TO GO HOME IF O2 WNL'S ON 4L OR LESS. NO C/O PAIN. RT TX GIVEN THIS AM AND AGAIN THIS EVENING. CALL LT IN REACH.
[2024-03-17 19:27] VITALS: BP 99/54
[2024-03-18 02:37] VITALS: BP 127/71
[2024-03-18 04:57] LABS: BASOPHILS PERCENT AUTO 0 % (0-2); EOSINOPHILS ABSOLUTE AUTO 0.01 K/mm3 (0.00-0.68); EOSINOPHILS PERCENT AUTO 0 % (0-6); Hematocrit 32.8 % (33.0-51.0); IMMATURE GRAN ABSOLUTE AUTO 0.07 K/mm3 (0.00-0.10); IMMATURE GRAN PERCENT AUTO 1 % (0-1); LYMPHOCYTES ABSOLUTE AUTO 0.22 K/mm3 (0.84-5.20); LYMPHOCYTES PERCENT AUTO 3 % (21-46); MONOCYTES ABSOLUTE AUTO 0.37 K/mm3 (0.16-1.47); MONOCYTES PERCENT AUTO 5 % (4-13); Mean Corpuscular HGB 30.2 pg (26.0-34.0); Mean Corpuscular HGB Conc 30.5 g/dL (31.5-36.5); Mean Corpuscular Volume 99 fL (80-100); Mean Platelet Volume 10.8 fL (9.1-12.4); NEUTROPHILS ABSOLUTE AUTO 6.65 K/mm3 (1.96-9.15); NEUTROPHILS PERCENT AUTO 91 % (41-73); Platelet Count 542 K/mm3 (150-400); RDW Coefficient Variation 14.9 % (11.7-14.2); RDW Standard Deviation 54.4 fL (35.1-46.3); Red Blood Cell Count 3.31 M/mm3 (3.80-5.20); White Blood Cell Count 7.32 K/mm3 (4.00-11.30)
[2024-03-18 05:16] LABS: Albumin, Blood 2.1 g/dL (3.4-5.0); Albumin/Globulin Ratio 0.6 (0.8-1.8); Bilirubin, Total 0.2 mg/dL (0.1-1.0); Bun/Creatinine Ratio 57.4 (12.0-20.0); Calcium, Blood 8.7 mg/dL (8.5-10.1); Creatinine, Blood 0.38 mg/dL (0.40-1.00); Globulin, Blood 3.8 g/dL (2.2-4.0); Potassium, Blood 3.8 mmol/L (3.5-5.5); Total Protein, Blood 5.9 g/dL (6.4-8.2)
--- NOTE | 2024-03-18 05:35 | NUR ---
SHIFT SUMMARY 3-4L THROUGH MOST OF THE NIGHT WITH SATS >88%. RT INCREASED O2 TO 5L WITH BREATHING TREATMENT SECONDARY TO WORK OF BREATHING. O2 ABLE TO BE TURNED BACK TO 4L, THEN 3.5 WITHIN 30 MINUTES. PT DOES BECOME SOB WITH ACTIVITY. CONTINOUS PULSE OX IN PLACE. DAUGHTER AT BEDSIDE. SIDE RAILS UP X2, CALL LIGHT WITHIN REACH.
[2024-03-18 07:33] VITALS: BP 104/57
[2024-03-18] MEDS ORDERED: CEFP200 PO (15:17)
[2024-03-18] MEDS ORDERED: Prednisone10 MG PO (15:19)
--- NOTE | 2024-03-18 17:17 | NUR ---
SHIFT SUMMARY PT RESTING QUIETLY AWAKE ON PHONE DURING SHIFT REPORT. PT REMAINED ON 2-3L O2 VIA N/C AGAIN TODAY. DR VALLEJO AND DR VÁZQUEZ IN TO SEE PT AND DISCUSS PLAN OF CARE. PT'S DAUGHTER SLEEPING IN AT BS. HOME O2 EVAL DONE FOR D/C. FUEL EFFICIENT AIRCRAFT DESIGNER IN TO TALK WITH PT AND DAUGHTER. ARRANGEMENTS MADE FOR O2 TO BE DELIVERED HERE TO AND CONCENTRATOR TO BE DELIVERED TO HOUSE. MEDS FAXED TO [facility] PER PT REQUEST. D/C INSTRUCTIONS REVIEWED WITH PT; VERBALIZED UNDERSTANDING. PT ASSIST OUT TO DAUGHTERS CAR VIA W/C. DAUGHTER TOOK OUT ALL PT BELONGINGS WITH HER.
== END 2024-03-18 16:29 | disposition home health service (06) | DRG 871 ==
LOC: ER 10:21 → ERHOLD 12:09 → MEDS 12:09 → PCU 03-09 06:02 → MEDS 03-10 22:23
PROVIDERS: Family Medicine; Hospitalist; Physician Assistant; Student in an Organized Health Care Education/Training Program; ADMIT Family Medicine
PROC: 5A09357 Assistance with Respiratory Ventilation, Less than 24 Consecutive Hours, Continuous Positive Airway Pressure (ICD-10-PCS; principal; 2024-03-08)
PROC: 3E03329 Introduction of Other Anti-infective into Peripheral Vein, Percutaneous Approach (ICD-10-PCS; 2024-03-08)
DX: A40.3 Sepsis due to Streptococcus pneumoniae (principal); E43 Unspecified severe protein-calorie malnutrition; G92.8 Other toxic encephalopathy; J96.21 Acute and chronic respiratory failure with hypoxia; J96.22 Acute and chronic respiratory failure with hypercapnia; J18.9 Pneumonia, unspecified organism; E87.1 Hypo-osmolality and hyponatremia; J44.0 Chronic obstructive pulmonary disease with (acute) lower respiratory infection; I50.32 Chronic diastolic (congestive) heart failure; J44.1 Chronic obstructive pulmonary disease with (acute) exacerbation; R64 Cachexia; E87.4 Mixed disorder of acid-base balance; Z51.5 Encounter for palliative care; Z66 Do not resuscitate; I27.20 Pulmonary hypertension, unspecified; Z99.81 Dependence on supplemental oxygen; M81.0 Age-related osteoporosis without current pathological fracture; Z90.49 Acquired absence of other specified parts of digestive tract; Z98.51 Tubal ligation status; Z79.899 Other long term (current) drug therapy; Z79.2 Long term (current) use of antibiotics
CPT/HCPCS: 36415; 71045; 80048; 80053; 82803; 82947; 83605; 83735; 84145; 84484; 85025; 85027; 87040; 93005; 93010; 94640; 94644; 94660; 94664; 94760; 94761; 94762; 96361; 96374; 97110; 97162; 97530; 99285-25; A9270; J0295; J0696; J1650; J2060; J2919; J7030; J7050; J7060

== ENCOUNTER 2024-11-09 20:33 | Inpatient (IN) | payer OTHER ==
[~2024-11-09] VITALS: Ht 154.9 cm; Wt 34.7 kg
[~2024-11-09 20:33] MED LIST changes: -ALBU2.5V5 NEB; +CEFP200 PO
[2024-11-09] MEDS ORDERED: Albuterol 2.5 MG/3 ML VIAL INH SCH (20:55)
[2024-11-09 21:04] LABS: pH Blood Venous 7.52 (7.34-7.37)
[2024-11-09] MEDS ORDERED: Naloxone HCl 0.4MG / ML 1ML Vial IV ONE (21:10)
[2024-11-09 21:15] LABS: BASOPHILS ABSOLUTE AUTO 0.02 K/mm3 (0.00-0.23); BASOPHILS PERCENT AUTO 0 % (0-2); EOSINOPHILS ABSOLUTE AUTO 0.06 K/mm3 (0.00-0.68); EOSINOPHILS PERCENT AUTO 1 % (0-6); Hematocrit 34.8 % (33.0-51.0); Hemoglobin 9.6 g/dL (11.5-16.0); IMMATURE GRAN ABSOLUTE AUTO 0.02 K/mm3 (0.00-0.10); IMMATURE GRAN PERCENT AUTO 0 % (0-1); LYMPHOCYTES ABSOLUTE AUTO 1.72 K/mm3 (0.84-5.20); LYMPHOCYTES PERCENT AUTO 20 % (21-46); MONOCYTES ABSOLUTE AUTO 0.80 K/mm3 (0.16-1.47); MONOCYTES PERCENT AUTO 9 % (4-13); Mean Corpuscular HGB Conc 27.6 g/dL (31.5-36.5); Mean Corpuscular Volume 111 fL (80-100); NEUTROPHILS ABSOLUTE AUTO 6.16 K/mm3 (1.96-9.15); NEUTROPHILS PERCENT AUTO 70 % (41-73); NRBC ABSOLUTE 0.00 K/mm3 (0.00-0.02); NRBC Auto 0.0 /100 WBC (0.0-0.2); Platelet Count 142 K/mm3 (150-400); RDW Coefficient Variation 12.8 % (11.7-14.2); RDW Standard Deviation 52.6 fL (35.1-46.3)
[2024-11-09] MEDS ORDERED: CefTRIAXone Sodium 1,000 MG in NS 100 ML IV ONE (21:25)
[2024-11-09 21:45] LABS: Alanine Aminotransfer (ALT/SGP 21 U/L (12-78); Albumin, Blood 3.0 g/dL (3.4-5.0); Albumin/Globulin Ratio 0.7 (0.8-1.8); Aspartate Aminotrans (AST/SGOT 24 U/L (12-37); Bilirubin, Total 0.3 mg/dL (0.1-1.0); Blood Urea Nitrogen 24 mg/dL (8-24); Calcium, Blood 8.7 mg/dL (8.5-10.1); Chloride, Blood 87 mmol/L (98-108); Creatinine, Blood 0.52 mg/dL (0.40-1.00); Globulin, Blood 4.5 g/dL (2.2-4.0); Glucose, Blood 157 mg/dL (70-99); Potassium, Blood 4.3 mmol/L (3.5-5.5); Sodium, Blood 137 mmol/L (136-145); Total Protein, Blood 7.5 g/dL (6.4-8.2)
[2024-11-09 21:49] LABS: Anion Gap Unable to Calculate mmol/L (3-11); CO2, Blood >45 mmol/L (21-32)
[2024-11-09] MEDS ORDERED: Ipratropium/Albuterol SulF 2.5-0.5MG/3 ML Amp INH SCH (23:00)
[2024-11-09] MEDS ORDERED: NS 1,000 ML IV SCH (23:00)
[2024-11-09 23:34] LABS: pH Blood Venous 7.39 (7.34-7.37)
[2024-11-10] VITALS (29 sets, daily range): BP systolic 92–167; BP diastolic 48–149
[2024-11-10] MEDS ORDERED: Albuterol 2.5 MG/3 ML VIAL INH PRN (01:50)
[2024-11-10 03:30] LABS: BASOPHILS ABSOLUTE AUTO 0.01 K/mm3 (0.00-0.23); BASOPHILS PERCENT AUTO 0 % (0-2); EOSINOPHILS ABSOLUTE AUTO 0.01 K/mm3 (0.00-0.68); EOSINOPHILS PERCENT AUTO 0 % (0-6); Hematocrit 33.1 % (33.0-51.0); Hemoglobin 9.2 g/dL (11.5-16.0); IMMATURE GRAN ABSOLUTE AUTO 0.01 K/mm3 (0.00-0.10); IMMATURE GRAN PERCENT AUTO 0 % (0-1); LYMPHOCYTES ABSOLUTE AUTO 0.40 K/mm3 (0.84-5.20); LYMPHOCYTES PERCENT AUTO 6 % (21-46); MONOCYTES ABSOLUTE AUTO 0.04 K/mm3 (0.16-1.47); MONOCYTES PERCENT AUTO 1 % (4-13); Mean Corpuscular HGB Conc 27.8 g/dL (31.5-36.5); Mean Corpuscular Volume 109 fL (80-100); NEUTROPHILS ABSOLUTE AUTO 6.58 K/mm3 (1.96-9.15); NEUTROPHILS PERCENT AUTO 93 % (41-73); NRBC ABSOLUTE 0.00 K/mm3 (0.00-0.02); NRBC Auto 0.0 /100 WBC (0.0-0.2); Platelet Count 133 K/mm3 (150-400); RDW Coefficient Variation 12.7 % (11.7-14.2); RDW Standard Deviation 51.0 fL (35.1-46.3)
[2024-11-10 03:46] LABS: Magnesium, Blood 1.8 mg/dL (1.6-2.4)
[2024-11-10 03:50] LABS: Alanine Aminotransfer (ALT/SGP 18 U/L (12-78); Albumin, Blood 3.1 g/dL (3.4-5.0); Albumin/Globulin Ratio 0.8 (0.8-1.8); Aspartate Aminotrans (AST/SGOT 20 U/L (12-37); Bilirubin, Total 0.3 mg/dL (0.1-1.0); Blood Urea Nitrogen 20 mg/dL (8-24); Calcium, Blood 8.2 mg/dL (8.5-10.1); Chloride, Blood 90 mmol/L (98-108); Creatinine, Blood 0.43 mg/dL (0.40-1.00); Globulin, Blood 4.1 g/dL (2.2-4.0); Glucose, Blood 120 mg/dL (70-99); Potassium, Blood 3.9 mmol/L (3.5-5.5); Sodium, Blood 139 mmol/L (136-145); Total Protein, Blood 7.2 g/dL (6.4-8.2)
[2024-11-10 03:51] LABS: Anion Gap Unable to Calculate mmol/L (3-11); CO2, Blood >45 mmol/L (21-32)
[2024-11-10 04:12] LABS: pH Blood Venous 7.44 (7.34-7.37)
--- NOTE | 2024-11-10 06:46 | NUR ---
NOC SHIFT SUMMARY NO ACUTE EVENTS. PT ARRIVES TO UNIT AT APPROX 0000. PT ARRIVES ORIENTED TO SELF, ANSWERS QUESTIONS W/ YES OR NO RESPONSES AND IS FOLLOWING COMMANDS ON ARRIVAL. CURRENTLY RESPONDING W/ FULL SENTANCES AND AOX3. NS INITIATED ORDERED AT 125ML/HR. LUNGS DIM W/ TOLERATED BIPAP WELL FOR MAJORITY OF SHIFT. CURRENTLY ON 5L VIA NC, O2 SATS>95%. PT AFEBRILE. PURE WICK IN PLACE. PLAN TO ADVANCE DIET TOLERATED. CALL LIGHT PROVIDED AND WITH REACH. BED IN LOWEST, LOCKED POSITION. PLAN OF CARE ONGOING
[2024-11-10] MEDS ORDERED: Lactobacil 2-S.Thermo-Bifido 1 1 Cap PO SCH (09:00)
[2024-11-10] MEDS ORDERED: Enoxaparin 40 MG/0.4 ML SYR SC SCH (09:00)
[2024-11-10] MEDS ORDERED: Polyethylene Glycol 3350 17 gm PO PRN (10:55)
[2024-11-10] MEDS ORDERED: Docusate Sodium/Senna 1 Tab PO SCH (21:00)
[2024-11-10] MEDS ORDERED: CefTRIAXone Sodium 1,000 MG in NS 100 ML IV SCH (21:00)
--- NOTE | 2024-11-10 22:04 | NUR ---
PT AOX4, ABLE TO ANSWER QUESTIONS APPROPRIATELY. VITALS WNL. PT ASKS FOR HER OXYGEN TO BE INCREASED. EXPLAINED TO PT THAT HER O2 SATURATION WAS WNL AT 95% ON 4L O2. PT STATES SHE IS HAVING HALLUCINATIONS, "IM SEEING THINGS CRAWL ACROSS THE WALL, BUGS ON THE FLOOR, AND THINGS MOVING AROUND THE ROOM." EXPLAINED TO PATIENT THAT THIS WAS NOT D/T LOW OXYGEN BUT MORE LIKELY D/T ELEVATED CO2 LEVELS AND THAT SHE WOULD NEED TO PUT ON THE BIPAP. PT INTITIALL RESISTANT TO BIPAP, "I JUST DONT LIKE IT". ATTEMPTED TO EDUCATE PT ON THE NEED FOR BIPAP WELL COMPLIANCE FOR HER HOME CPAP. PT RELUCTANTLY ALLOWED BIPAP TO BE PLACED. PT WORE BIPAP FOR ABOUT AN HOUR AND THEN REMOVED IT HERSELF. PT DECLINES TO CONTINUE WEARING BIPAP AT THIS TIME. PT BACK ON 4L O2 NC.
[2024-11-11] VITALS (9 sets, daily range): BP systolic 103–119; BP diastolic 60–84
--- NOTE | 2024-11-11 00:28 | NUR ---
PT AGREEABLE TO WEARING BIPAP AGAIN AND IS CURRENTLY RESTING COMFORTABLY WITH BIPAP MASK IN PLACE. VITAL SIGNS WNL.
[2024-11-11 03:27] LABS: pH Blood Venous 7.58 (7.34-7.37)
--- NOTE | 2024-11-11 03:41 | NUR ---
NOTIFIED OF CRITICAL PH OF 7.58. CALLED DR. CANNON WITH RESULTS. ORDERS TO REPEAT VBG IN 3HRS AND REMOVE FROM BIPAP AT THIS TIME.
[2024-11-11 03:56] LABS: Hematocrit 29.4 % (33.0-51.0); Hemoglobin 8.5 g/dL (11.5-16.0); Mean Corpuscular HGB Conc 28.9 g/dL (31.5-36.5); Mean Corpuscular Volume 107 fL (80-100); NRBC ABSOLUTE 0.00 K/mm3 (0.00-0.02); NRBC Auto 0.0 /100 WBC (0.0-0.2); Platelet Count 153 K/mm3 (150-400); RDW Coefficient Variation 13.2 % (11.7-14.2); RDW Standard Deviation 51.1 fL (35.1-46.3)
[2024-11-11 04:51] LABS: Ferritin, Serum 50 ng/mL (8-252); Magnesium, Blood 1.9 mg/dL (1.6-2.4); Total Iron Binding Capacity 206 ug/dL (250-450)
[2024-11-11 04:59] LABS: Albumin, Blood 2.7 g/dL (3.4-5.0); Blood Urea Nitrogen 16 mg/dL (8-24); Calcium, Blood 8.2 mg/dL (8.5-10.1); Chloride, Blood 94 mmol/L (98-108); Creatinine, Blood 0.51 mg/dL (0.40-1.00); Glucose, Blood 124 mg/dL (70-99); Phosphorus, Blood 1.4 mg/dL (2.5-4.9); Potassium, Blood 4.2 mmol/L (3.5-5.5); Sodium, Blood 137 mmol/L (136-145)
--- NOTE | 2024-11-11 05:00 | NUR ---
CALLED DR. CANNON REGARDING PT DECREASING H&H. PT IS ASYMPTOMATIC. ORDERS TO CONTINUE TO MONITOR WITH LABS TOMORROW AM UNLESS SHE BECOMES SYMPTOMATIC AND THEN TO RECHECK H&H SOONER.
[2024-11-11 05:01] LABS: Anion Gap Unable to Calculate mmol/L (3-11); CO2, Blood >45 mmol/L (21-32)
--- NOTE | 2024-11-11 05:01 | NUR ---
FROM PREVIOUS NOTE REGARDING DECREASING H&H. DID INFORM PHYSICIAN THAT PT HOME MED LIST LISTED PROTONIX PT HOME MED AND WAS NOT RECEIVING THAT HERE. NO NEW ORDERS AT THIS TIME.
--- NOTE | 2024-11-11 06:44 | NUR ---
PT STABLE THROUGHOUT THE SHIFT. PT AOX4, SBA TO BSC. PT WAS IMPULSIVE X1 DURING SHIFT, ATTEMPTING TO GET OOB TO TOILET. PT INTERMITTENTLY COMPLIANT WITH CALL LIGHT USE, DESPITE FREQUENT REORIENTATION TO IT. PT DID WEAR BIPAP THROUGHOUT THE SHIFT BUT WAS INITIALLY RESISTANT TO ITS USE. BIPAP REMOVED THIS MORNING D/T VBG WITH PH 7.58 AND CO2 BELOW PT BASELINE. PT ON 4L O2 BY NC AND MAINTAINING GOOD O2 SATS WITH THAT. PT DID HAVE VISUAL HALLUCINATIONS AT THE BEGINNING OF SHIFT AND PT AWARE THAT THEY WERE HALLUCINATIONS. HALLUCINATIONS STOPPED AFTER BEING ON BIPAP. PT DID HAVE GOOD URINARY OUTPUT THIS SHIFT.
[2024-11-11 07:09] LABS: pH Blood Venous 7.42 (7.34-7.37)
--- NOTE | 2024-11-11 08:21 | NUR ---
ASSUMPTION OF CARE ASSUMED CARE OF PATIENT AT APPROMXIMATELY 0700. PT RESTING IN BED, ALERT AND ORIENTED X4. PT ANSWERS QUESTIONS APPROPRIATELY, FOLLOWS DIRECTION WHEN PROMPTED AND IS ABLE TO MAKE HER NEEDS KNOWN. PT MOVES EXTREMITIES EQUALLY BILATERALLY, REPOSITIONS SELF IN THE BED AND AMBUALTES IN THE ROOM WITH SBA. CHAIR ALARM IN PLACE UNDER PATIENT IN BED. PT COMPLAINING OF 4/10 PAIN IN HER BACK. HR 70-80'S SINUS, MAP >65, PT DENIES CP/PRESSURE. PT ON 4LPM VIA NC WHICH IS HER BASELINE, OXYGEN SATURATION >95%. ABDOMEN SOFT, TENDER ON PALPATION, BOWEL TONES ACTIVE THROUGHOUT. PT AMBULATES TO BEDSIDE TOILET TO VOID. PIV IN PLACE TO RFA AND LAC SL. BED IN LOWEST POSITION, CALL LIGHT WITHIN REACH, CARE CONTINUES.
[2024-11-11] MEDS ORDERED: Cholecalciferol 1000 Unit Tablet (=25MCG) PO SCH (09:00)
[2024-11-11] MEDS ORDERED: Sodium Phosphate Mono/Dibasic 250 MG Tab PO SCH (11:30)
--- NOTE | 2024-11-11 16:11 | NUR ---
SPiritual care visit conducted. Patient has no visitors present at the time of my visit. She is resting when I place my hand on her shoulder and she awakens and acknowledges that she remembers me from prior visits by opening her eyes and shakes her head "yes." I reassure her about the excellence of the care she is receiving and the love and prayers that are being sent to her. I ask if I could pray for her and again she opens her eyes and looking at me nods her head affirmingly. I gladly supply prayer and she mouths, "Thank you." I will continue to remain avaialble to patient and family.
[2024-11-11 16:20] LABS: pH Blood Venous 7.51 (7.34-7.37)
--- NOTE | 2024-11-11 16:20 | NUR ---
PT UPDATE PT DENTURES REMOVED WHEN PLACED ON BIPAP. DENTURES HAVE WHAT APPEARS TO BE CANDY/GUM WRAPPERS INSIDE OF THE DENTURE WHERE THE ALVEOLAR RIDGE IS. DENTURE ALSO HAS WHAT APPEARS TO BE HEAVY BACTERIA BUILD UP. DENTAL HYGENIST INFORMED AND CAME TO BEDSIDE TO ASSESS. CARE CONTINUES.
[2024-11-11] MEDS ORDERED: Multivitamins 1 Tab PO SCH (17:00)
--- NOTE | 2024-11-11 17:27 | NUR ---
SHIFT SUMMARY PT CONTINUES TO REST IN BED, SLEEPING ON AND OFF THROUGHOUT THE DAY. PT ALERT AND ORIENTED X4, ANSWERS QUESTIONS APPROPRIATELY, FOLLOWS DIRECTION WHEN PROMPTED AND IS ABLE TO MAKE HER NEEDS KNOWN. PT MOVES EXTRTEMITIES EQUALLY BILATERALLY. HR 70-90'S SINUS, MAP >65. PT ALTERNATING BETWEEN 4LPM VIA NASAL CANNULA AND BIPAP. PT HAVING PERIODS OF APNEA, DESATURATES WHILE SLEEPING. RT TO BEDSIDE TO ADJUST SETTINGS, PT CURRENTLY ON AVAPS SETTINGS VT 350, EPAP 7, FI02 35%, OXYGEN SATURATION >94%. ABDOMEN SOFT, BOWEL TONES ACTIVE THROUGHOUT. PUREWICK PLACED, YELLOW OUTPUT. PIV IN PLACE TO LAC AND RFA SL. BED IN LOWEST POSITION, CALL LIGHT WITHIN REACH, BED ALARM IN PLACE UNDER PATIENT, CARE CONTINUES.
[2024-11-12] VITALS (11 sets, daily range): BP systolic 92–115; BP diastolic 56–72
[2024-11-12 03:44] LABS: Hematocrit 32.9 % (33.0-51.0); Hemoglobin 9.4 g/dL (11.5-16.0); Mean Corpuscular HGB Conc 28.6 g/dL (31.5-36.5); Mean Corpuscular Volume 107 fL (80-100); NRBC ABSOLUTE 0.00 K/mm3 (0.00-0.02); NRBC Auto 0.0 /100 WBC (0.0-0.2); Platelet Count 166 K/mm3 (150-400); RDW Coefficient Variation 13.2 % (11.7-14.2); RDW Standard Deviation 52.0 fL (35.1-46.3)
[2024-11-12 04:06] LABS: Magnesium, Blood 2.0 mg/dL (1.6-2.4)
[2024-11-12 04:10] LABS: Albumin, Blood 2.7 g/dL (3.4-5.0); Blood Urea Nitrogen 13 mg/dL (8-24); Calcium, Blood 8.3 mg/dL (8.5-10.1); Chloride, Blood 95 mmol/L (98-108); Creatinine, Blood 0.55 mg/dL (0.40-1.00); Glucose, Blood 128 mg/dL (70-99); Phosphorus, Blood 2.9 mg/dL (2.5-4.9); Potassium, Blood 3.8 mmol/L (3.5-5.5); Sodium, Blood 139 mmol/L (136-145)
[2024-11-12 04:12] LABS: Anion Gap Unable to Calculate mmol/L (3-11)
[2024-11-12 04:13] LABS: CO2, Blood >45 mmol/L (21-32)
--- NOTE | 2024-11-12 06:21 | NUR ---
SHIFT SUMMARY PT REMAINS A&OX4, ANSWERS QUESTIONS APPROPRIATELY, FOLLOWS COMMANDS, AND ABLE TO MAKE NEEDS KNOWN. PT MOVES EXTREMITIES X4, EQUALLY. HR 80S-90S, SINUS. SBP WNL. PT WORE BIPAP MOST OF THE NIGHT, CONTINUES TO HAVE EPISODES OF APNEA AND LOW TIDAL VOLUMES, DE-SATING INTO MID 70S. RT CALLED ON MULTIPLE OCCASSIONS. PT AROUSED TO VERBAL AND PHYSICAL STIMULI BUT HAD PROLONGED RECOVERY TO NORMAL SATS. PT WEARING NC T/O DAY AT 4L (BASELINE). ABD SOFT, BT ACTIVE X4. PT TOLERATING REGULAR ORAL INTAKE. PUREWICK IN PLACE, DRAINING TO CONTINUOUS SUCTION. PERIPHERAL IV IN LAC, SALINE LOCKED. THIS RN TO REPORT TO ONCOMING RN.
--- NOTE | 2024-11-12 07:00 | NUR ---
ASSUMPTION OF CARE PATIENT WAS RESTING COMFORTABLY ON 4LNC RR EVEN UNLABORED. PT VS STABLE. PT TEMP MAX 99.4. PT HAS ONE IV SALINE LOCKED THIS AM. PT IS ON A CHAIR TAB ALARM WHILE IN BED. PT HAS PURWICK IN PLACE WITH YELLOW URINE OUT IN CANISTER. DIMINISHED T/O EXCEPT RIGHT LOWER LOBE HAS CRACKLES. PATIENT HAS POSITIVE BT AND ABD IS SOFT. NO EDEMA NOTED, GOOD PPP X [address] CAMARILLO AND ORDERED A VBG. AWAITING RESULTS.
[2024-11-12 08:48] LABS: pH Blood Venous 7.40 (7.34-7.37)
[2024-11-12] MEDS ORDERED: Albuterol HFA200 ACT/6.7 GM INH INH PRN (10:55)
[2024-11-12] MEDS ORDERED: Budesonide 0.25 MG / 2 ML RESP INH SCH (11:05)
--- NOTE | 2024-11-12 16:29 | NUR ---
UPDATE GRAND DAUGHTER CAME IN THIS AFTERNOON. PATIENT PERKED UP AND WAS WILLING TO DRINK SOME COFFEE AND EAT HER LUNCH. THEN PATIENT WANTED TO TAKE A SHOWER WITH THE GRAND DAUGHTER HELPING HER "ONLY". SET UP THE SHOWER IN THE ICU UNIT AND GOT PATIENT TO THE SHOWER CHAIR. THEY PROCEEDED TO DO THE SHOWER WITHOUT STAFF IN ROOM. SHE IS IN THE SHOWER WITH AN OXYGEN TANK HER NASAL CANULA STILL IN PLACE AND SET AT 3L.
[2024-11-12 17:12] LABS: pH Blood Venous 7.41 (7.34-7.37)
--- NOTE | 2024-11-12 18:01 | NUR ---
END OF SHIFT NOTE PATIENT WAS VERY LETHARGIC THIS AM. BUT WHEN GRANDDAUGHTER ARRIVED SHE PERKED UP AND ATE A MEAL AND TOOK A SHOWER AND WAS MORE INTERACTIVE WITH STAFF. SHE IS ON 3L NC. WHEN SHE IS MOVING AND COUGHING SOME WHERE OXYGENATION DROPS TO LOW 80'S BUT DOES RECOVER BACK TO 88-90%. PATIENT HAS NOT BEEN ON BIPAP BUT FOR AN HR TODAY. SHE DID REST WITH JUST 4L NC AND PERIODICALLY SHE DID DESATURATE TO LOW 70%'S. SHE HAD TO BE WOKEN TO TAKE DEEP BREATHS TO GET HER OXYGENATION BACK UP TO 88%. SHE HAS ONE IV TO LEFT FOREARM , DRESSING CHANGED THIS AFTERNOON POST SHOWER. SHE HAD A PURWICK IN MOST OF DAY BUT AFTER SHOWER SHE HAS JUST A BRIEF ON. NO ACUTE PAIN TO BE STATED. HER GRANDDAUGHTER STATED THAT SHE GETS INTO A DEPRESSED STATE WHEN FAMILY DOES NOT COME SEE HER. SHE REMAINS MEDICAL STATUS AT THIS TIME.
[2024-11-13 03:19] VITALS: BP 106/62
--- NOTE | 2024-11-13 03:37 | NUR ---
TRANSFER NOTE PT A/OX4. ON 3LNC W/ SATS >92%. PT HAS PUREWICK IN PLACE. NO TELE ORDERED. REPORT GIVEN TO ONCOMING RN, ALL QUETIONS ADDRESSED. PT WAS TRANSPORTED VIA BED WITH 2 RNS TO NEW ROOM. ALL BELONGINGS MOVED WITH PATIENT. NO ACUTE EVENTS.
[2024-11-13 03:46] LABS: pH Blood Venous 7.41 (7.34-7.37)
[2024-11-13 04:03] LABS: Hematocrit 31.7 % (33.0-51.0); Hemoglobin 9.2 g/dL (11.5-16.0); Mean Corpuscular HGB Conc 29.0 g/dL (31.5-36.5); Mean Corpuscular Volume 107 fL (80-100); NRBC ABSOLUTE 0.00 K/mm3 (0.00-0.02); NRBC Auto 0.0 /100 WBC (0.0-0.2); Platelet Count 168 K/mm3 (150-400); RDW Coefficient Variation 13.2 % (11.7-14.2); RDW Standard Deviation 52.0 fL (35.1-46.3)
[2024-11-13 04:40] LABS: Magnesium, Blood 1.9 mg/dL (1.6-2.4)
[2024-11-13 04:54] LABS: Albumin, Blood 2.4 g/dL (3.4-5.0); Blood Urea Nitrogen 14 mg/dL (8-24); Calcium, Blood 8.0 mg/dL (8.5-10.1); Chloride, Blood 95 mmol/L (98-108); Creatinine, Blood 0.55 mg/dL (0.40-1.00); Glucose, Blood 82 mg/dL (70-99); Phosphorus, Blood 2.4 mg/dL (2.5-4.9); Potassium, Blood 3.5 mmol/L (3.5-5.5); Sodium, Blood 139 mmol/L (136-145)
[2024-11-13 04:55] LABS: Anion Gap Unable to Calculate mmol/L (3-11)
[2024-11-13 04:56] LABS: CO2, Blood >45 mmol/L (21-32)
--- NOTE | 2024-11-13 05:35 | NUR ---
END OF SHIFT NOTE: PT ADMITTED FROM ICU AROUND 315 AM.BP 106/62, VSS. PT ORIENTED TO ROOM ON PLACED ON NEW LINENS, MAINTAINING O2 SATS ON 3 LNC, IV SITE ASSESSED AND FLUSHED. PT DENTURES THEN PLACED AND PT ATE SMALL SNACKS. PLAN OF CARE DISCUSSED TO CONTINUE IV ABX FOR PNA AND TO CONTINUE BPAP AT NIGHT. ON 12/6 AND 30% FIO2. PT DENIES PAIN OR SOB. PT REQUIRES HELP TURNING IN BED. NEW PUREWICK PLACED AFTER PERICARE, MEPILEX PLACED TO COCCYX FOR WOUND CARE PREVENTION WITH PILLOWS AND TURNING. PT NOT CARDIAC MONITORED BUT ON CONTINUOS O2 MONITORING. PT DESATS QUICKLY IF NASAL CANNULA W 3 LITERS NOT IN NARES TO 70'S. RT ROUNDED AND PT CURRENTLY SLEEPING W CPAP ON. LABS DRAWN W AM VBG. BED ALARM ON FOR SAFETY, BED LOW AND LOCKED AND CALL LITE IN REACH
[2024-11-13 07:53] VITALS: BP 114/66
--- NOTE | 2024-11-13 11:58 | NUR ---
Spiritual care visit conducted. Patient is lying in bed and alert. She tells me she is only doing "so so," and welcomes prayer, which I gladly supply. Patient voices her appreciation. Spiritual care will remain available.
[2024-11-13 16:21] VITALS: BP 129/71
--- NOTE | 2024-11-13 16:34 | NUR ---
TRANSFER UPDATE REPORT GIVEN TO UVALDO DYSON RN AT 1616. PT TRANFERED AT 1630 VIA WHEELCHAIR AND ON 4L NC. PT ABLE TO TRANSFER TO AND FROM WHEELCHAIR ON HER OWN, TOLERATED WELL. PT PERSONAL BELONGINGS IN BAGS AND WITH PT AT TIME OF TRANSFER. PT GRAND DAUGHTER PRESENT DURING TRANSFER.
--- NOTE | 2024-11-13 16:56 | NUR ---
TRANSFER NOTE: PATIENT TRANSFERED FROM PCU 17 TO ROOM 340. PATIENT ASSISTED TO BED c SBA AND NURSING PERSONEL. RESPIRTORY THERAPY NOTIFIED OF TRANSFER AND BI-PAP SET-UP IN ROOM. BELONGINGS PUT AWAY AND PATIENT ORIENTED TO CALL SYSTEM. CALL LIGHT WITHIN REACH. NO CURRENT NEEDS AT THIS TIME.
--- NOTE | 2024-11-13 18:16 | NUR ---
SHIFT SUMMARY: PATIENT ON 3L 02 SATING AT 91 SITTING c HEAD ELEVATED IN BED. PATIENT MEDICATED c ATARAX FOR ANXIETY. GRAND-DAUGHTER IN ROOM AT THIS TIME. DISCUSSED HOW TO UTILIZE MENU WITH PATIENT AND HOW TO CALL TO ORDER. NO NEEDS AT THIS TIME. WILL GIVE REPORT TO ONCOMING RN.
[2024-11-13 21:55] VITALS: BP 98/72
[2024-11-13] MEDS ORDERED: NS 250 ML IV PRN (21:55)
[2024-11-13 21:59] VITALS: BP 102/76
[2024-11-13 22:01] VITALS: BP 110/64
[2024-11-14 03:40] VITALS: BP 104/62
[2024-11-14 06:20] LABS: Anion Gap 3.0 mmol/L (3-11); Blood Urea Nitrogen 11.0 mg/dL (8-24); CO2, Blood 42.0 mmol/L (21-32); Calcium, Blood 8.5 mg/dL (8.5-10.1); Chloride, Blood 100.0 mmol/L (98-108); Creatinine, Blood 0.47 mg/dL (0.40-1.00); Glucose, Blood 74.0 mg/dL (70-99); Potassium, Blood 4.0 mmol/L (3.5-5.5); Sodium, Blood 141.0 mmol/L (136-145)
--- NOTE | 2024-11-14 07:30 | NUR ---
Shift Summary AOx4. Patient refused lasix that was ordered for her last night. She c/o that lasix was not discussed with her prior to ordering it so she will not take it. Did wear her Bipap all night. There are lots of sugary candies brought in by family that she eats all the time. Blood sugars q6h have been good. VSS. Remains on 3L O2 via NC. Patient has been drinking quite a bit of coffee. LAC IV, saline locked.
[2024-11-14 07:49] VITALS: BP 109/63
[2024-11-14 11:33] LABS: Source, Urine Voided
[2024-11-14 11:52] LABS: Bilirubin, Urine Neg (Neg); Color, Urine Yellow (P-Yellow); Glucose Qualitative, Urine Neg (Neg); Ketones, Urine Neg (Neg); Leukocyte Esterase, Urine Neg (Neg); Protein, Urine Neg (Neg); Specific Gravity, Urine 1.010 (1.003-1.022); Urobilinogen, Urine NORM (Normal)
--- NOTE | 2024-11-14 18:12 | NUR ---
NO ACUTE CHANGES THIS SHIFT. PLAN TO DISCHARGE PENDING HOME VENT APPROVED AND DELIVERED TO HOME. PT DECLINING VALERIE AND MAYRA. AWARE. PT EDUCATED BUT DECLINES. EXPANDING MACHINE OPERATOR AT BEDSIDE TODAY FOR CONSULT. PT IS SBA TO BSC. C/O UTI SYMPTOMS. U/A NEG. 3L NC WITH BIPAP/NOC. CALLS APPROPRIATLEY.
[2024-11-14 18:22] VITALS: BP 95/55
[2024-11-14 19:35] VITALS: BP 108/53
[2024-11-15 04:39] VITALS: BP 93/66
--- NOTE | 2024-11-15 05:24 | NUR ---
PT A&O X4, VS WNL WITH B/P RUNNING ON LOW SIDE. REMAINS ON O2 AT 3L/NC WITH 2L BASELINE. PT USES CALL SYSTEM APPROPRIATELY. TOOK MEDS WITHOUT ISSUE, BUT DID SAY SHE WOULD NOT BE ABLE TO TAKE ENTRESTO AT HOME D/T COST. PT ON NEBS, AND DID NOT WEAR BIPAP THIS NIGHT. SLEPT WELL, UP TO BSC WITH SBA. UOP IS ABOVE AVERAGE. PO INTAKE GD WITH X3 SNAKE'S IN NIGHT. PLAN TO D/C TO HOME WITH HH.
[2024-11-15 05:34] LABS: Anion Gap 2 mmol/L (3-11); Blood Urea Nitrogen 10 mg/dL (8-24); CHOL/HDL RATIO 3.1; CO2, Blood 43 mmol/L (21-32); Calcium, Blood 8.3 mg/dL (8.5-10.1); Chloride, Blood 100 mmol/L (98-108); Cholesterol 197 mg/dL (50-200); Creatinine, Blood 0.52 mg/dL (0.40-1.00); Glucose, Blood 88 mg/dL (70-99); HDL Cholesterol 64 mg/dL (>39); LDL/HDL RATIO 1.6; Low Density Lipoprotein Chol 104 mg/dL (0-110); Magnesium, Blood 2.3 mg/dL (1.6-2.4); Potassium, Blood 4.0 mmol/L (3.5-5.5); Sodium, Blood 141 mmol/L (136-145); Triglycerides 143 mg/dL (30-160); Very Low Density Lipoprot Chol 28 mg/dL (6-32)
[2024-11-15 07:12] VITALS: BP 92/46
--- NOTE | 2024-11-15 09:16 | NUR ---
PATIENT DECLINING JARIDANCE, LASIX, METOPROLOL THIS AM. EDUCATION PROVIDED. DOC MADE AWARE AT ROUNDING, EDUCATION PROVIDED BY HIM WELL. PATIENT REAPPROACHED, CONTINUED TO DECLINE. DOC MADE AWARE.
[2024-11-15] MEDS ORDERED: Aspir 8181 MG PO (10:48)
[2024-11-15] MEDS ORDERED: ATOR20 PO (10:49)
[2024-11-15] MEDS ORDERED: JARDIANCE10 MG PO (10:50)
[2024-11-15] MEDS ORDERED: FURO20 PO (10:52)
[2024-11-15] MEDS ORDERED: B-1100 M1 PO (10:53)
[2024-11-15] MEDS ORDERED: METOPROLOL SUCC25 MG PO (10:53)
[2024-11-15] MEDS ORDERED: AMOX875 PO (10:54)
[2024-11-15] MEDS ORDERED: VITAMIN D5000 UNIT PO (10:54)
[2024-11-15] MEDS ORDERED: LOSA25 PO (10:55)
[2024-11-15] MEDS ORDERED: Albuterol HFA200 ACT/6.7 GM INH INH SCH (15:50)
[2024-11-15] MEDS ORDERED: Formoterol/Mometasone MDI 5/200 mcg 13 GM INH SCH (15:50)
[2024-11-15] MEDS ORDERED: Tiotropium Bromide 2.5 MCG/ACT MIST INHAL (10 ACT/4 GM) INH SCH (15:50)
[2024-11-15] MEDS ORDERED: Ipratropium/Albuterol SulF 2.5-0.5MG/3 ML Amp INH PRN (15:55)
[2024-11-15 17:00] VITALS: BP 126/72
--- NOTE | 2024-11-15 18:09 | NUR ---
PATIENT DISCHARGE CHANGED UNTIL SUNDAY SO PATIENT CAN GET APPROPRIATE EQUIPMENT. UP TO COMMODE WITH STAND BY ASSIST. CALL LIGHT WITHIN REACH. PATIENT RESTED AND FAMILY AT BEDSIDE.
[2024-11-15 20:18] VITALS: BP 123/75
[2024-11-16 03:44] VITALS: BP 98/52
[2024-11-16 03:57] VITALS: BP 110/74
--- NOTE | 2024-11-16 04:47 | NUR ---
PT A&O X4, USES CALL SYSTEM APPROPRIATELY, VS WNL, O2 DECREASED TO 2L/NC UNTIL SHE DESATED WHEN UP TO BSC, RETURNED TO 3L/NC. PT FEELS STRONGER. APPETITE INCREASED SHE SNAKES FREQUENTLY DURING THE NIGHT. PT IS CONCERENED ABOUT SOME OF HER MEDS THAT HAVE BEEN STARTD WITHOUT ANYONE EXPLAINING WHY, WILL CHECK WITH MD TODAY, PT DOES HAVE INCOME ISSUE AND BRONSON OF MEDS. BIPAP WAS ONLY WORN FOR 45 MINUTES TONIGHT. D/C PLAN TO HOME WITH AND AWAITING EQUIPMENT DELIEVERY ON SUNDAY.
[2024-11-16 07:31] VITALS: BP 93/42
[2024-11-16 10:00] VITALS: BP 105/66
[2024-11-16 14:36] VITALS: BP 104/57
--- NOTE | 2024-11-16 17:12 | NUR ---
PT HAS HAD NO ACUTE CHANGES IS AOX4 AND COOPERATIVE OF CARE. PT CONTINUES ON 2L SATING IN THE 90s. PT RESTING IN BED CALLING WHEN APPROPRIATE. PT IS A ONE PERSON ASSIST TO COMMODE OR INTO RESTROOM. PT WAS ABLE TO HAVE A SHOWER TODAY. NO DISTRESS NOTED AND CALL LIGHT IN REACH WILL CONTINUE TO MONITOR.
[2024-11-16 19:36] VITALS: BP 97/58
[2024-11-17 04:14] VITALS: BP 90/47
--- NOTE | 2024-11-17 04:44 | NUR ---
PT A&O X4, VS WNL ALTHOUGH B/P RUNS SLIGHTLY LOW WHICH HAS BEEN HER NORM. PO INTAKE EXCELLENT, SNACKS THROUGHOUT NIGHT. USING CALL SYSTEM APPROPRIATELY. REMAINS ON O2 @ 3L/NC. BM ON 11/17, UP WITH ASSIST D/T STILL OCCASIONALY UNSTEADY, STATES SHE GETS LIGHT HEADED. PLAN TO DC HOME WITH HH.
[2024-11-17 08:20] VITALS: BP 82/54
[2024-11-17 08:23] VITALS: BP 88/59
[2024-11-17 09:17] VITALS: BP 90/51
[2024-11-17 12:34] LABS: Anion Gap 5.0 mmol/L (3-11); Blood Urea Nitrogen 12.0 mg/dL (8-24); CO2, Blood 41.0 mmol/L (21-32); Calcium, Blood 8.6 mg/dL (8.5-10.1); Chloride, Blood 97.0 mmol/L (98-108); Creatinine, Blood 0.47 mg/dL (0.40-1.00); Glucose, Blood 87.0 mg/dL (70-99); Potassium, Blood 4.0 mmol/L (3.5-5.5); Sodium, Blood 139.0 mmol/L (136-145)
--- NOTE | 2024-11-17 16:19 | NUR ---
PT DISCHARGED AT 1555 WITH FAMILY TO DISCHARGE HOME. ALL PAPERWORK WAS REVIEWED WELL INSTRUCTIONS ON TAKING BLOOD PRESSURE PRIOR TO PT TAKING ANY BP MEDS. PT'S FAMILY MEMBER VERBALIZED UNDERSTANDING. PT DOING WELL ON 2L AND O2 TANK WAS BROUGHT IN TO GET PT HOME. PT WAS A SOLID 1 PERSON STANDBY ASSIST TO RESTROOM AND TO GET INTO WHEEL CHAIR. NO DISTRESS NOTED AND ALL PERSONAL BELONGINGS COLLECTED AND TAKEN HOME. PT WAS ESCORTED OUT BY JOAQUIM OWEN TO ENTRANCE.
== END 2024-11-17 16:00 | disposition home health service (06) | DRG 871 ==
LOC: ER 20:33 → ICUE 22:55 → PCU 22:55 → MEDS 22:55 → ICUE 23:58 → PCU 11-13 02:55 → MEDS 11-13 16:55
PROVIDERS: Emergency Medicine; Internal Medicine; Internal Medicine Cardiovascular Disease; Student in an Organized Health Care Education/Training Program; ADMIT Student in an Organized Health Care Education/Training Program
PROC: 3E03329 Introduction of Other Anti-infective into Peripheral Vein, Percutaneous Approach (ICD-10-PCS; principal; 2024-11-09)
PROC: 5A09357 Assistance with Respiratory Ventilation, Less than 24 Consecutive Hours, Continuous Positive Airway Pressure (ICD-10-PCS; 2024-11-10)
DX: A41.9 Sepsis, unspecified organism (principal); E43 Unspecified severe protein-calorie malnutrition; G93.41 Metabolic encephalopathy; I50.21 Acute systolic (congestive) heart failure; J96.21 Acute and chronic respiratory failure with hypoxia; J96.22 Acute and chronic respiratory failure with hypercapnia; J44.0 Chronic obstructive pulmonary disease with (acute) lower respiratory infection; J44.1 Chronic obstructive pulmonary disease with (acute) exacerbation; Z68.1 Body mass index [BMI] 19.9 or less, adult; Z66 Do not resuscitate; R65.20 Severe sepsis without septic shock; D63.8 Anemia in other chronic diseases classified elsewhere; E88.A Wasting disease (syndrome) due to underlying condition; I27.20 Pulmonary hypertension, unspecified; D69.6 Thrombocytopenia, unspecified; Z91.148 Patient's other noncompliance with medication regimen for other reason; Z79.52 Long term (current) use of systemic steroids; Z79.51 Long term (current) use of inhaled steroids; Z99.81 Dependence on supplemental oxygen; Z87.891 Personal history of nicotine dependence
CPT/HCPCS: 36415; 70450; 71045; 80048; 80053; 80061; 80069; 81003; 82607; 82728; 82746; 82803; 82947; 83540; 83550; 83605; 83735; 83880; 84145; 85025; 85027; 87040; 87077; 87449; 93005; 93010; 93306; 94640; 94644; 94660; 94664; 94760; 94762; 96374; 96375; 97116; 97161; 97530; 99285-25; A9270; J0456; J0696; J1650; J1938; J2310; J2919; J3411; J7030; J7050

== ENCOUNTER → 2025-01-30 | Outpatient (CLI) | payer OTHER ==
[~2025-01-30] MED LIST changes: +AMOX875 PO; +ATOR20 PO; +Aspir 8181 MG PO; +B-1100 M1 PO; +FURO20 PO; +JARDIANCE10 MG PO; +LOSA25 PO; +METOPROLOL SUCC25 MG PO; +VITAMIN D5000 UNIT PO
== END ==
LOC: LAB SHORT 17:22 → LAB 17:22
DX: R30.0 Dysuria (principal)
CPT/HCPCS: 87077; 87086; 87147; 87186